=== PATIENT | male | born 1935 | race Caucasian/White ===

== ENCOUNTER 2016-05-22 02:37 | Observation (INO) | payer OTHER ==
[2016-05-22] MEDS ORDERED: MAALOX/LIDO/HYOSC GI COCKTAIL 55 ML BOTTLE PO ONE (03:07)
[2016-05-22] MEDS ORDERED: ALBUTEROL 3 ML DEYVIAL IH ONE (03:09)
--- NOTE | 2016-05-22 03:10 | EDPHY ---
H & P Stated Complaint: pt c/o ongoing cough/nasal congestion Time Seen by Provider: 05/22/16 03:01 HPI/ROS: CHIEF COMPLAINT: Cough HISTORY OF PRESENT ILLNESS: The patient is an 81-year-old man who comes to the emergency department complaining of a cough 5 days. No fever. Sinus congestion for 1 month. He does have a history of coronary artery disease status post CABG 2006. He does not have any history of pulmonary disease. No leg swelling or edema. He states that over the last 3 hours he has developed some mild chest pain that he thinks is indigestion but he does not typically get indigestion. He denies shortness of breath. No nausea, abdominal pain diarrhea. No palpitations or lightheadedness. REVIEW OF SYSTEMS: Constitutional: denies: chills, fever, recent illness, recent injury EENTM: denies: blurred vision, double vision, nose congestion Respiratory: See HPI Cardiac: See HPI Gastrointestinal/Abdominal: denies: abdominal pain, diarrhea, nausea, vomiting, blood streaked stools Genitourinary: denies: dysuria, frequency, hematuria, pain Musculoskeletal: denies: joint pain, muscle pain Skin: denies: lesions, rash, jaundice, bruising Neurological: denies: headache, numbness, paresthesia, tingling, dizziness, weakness Hematologic/Lymphatic: denies: blood clots, easy bleeding, easy bruising Immunologic/allergic: denies: HIV/AIDS, transplant EXAM: GENERAL: Well-appearing, well-nourished and in no acute distress. HEAD: Atraumatic, normocephalic. EYES: Pupils equal round and reactive to light, extraocular movements intact, sclera anicteric, conjunctiva are normal. ENT: TMs normal, nares patent, oropharynx clear without exudates. Moist mucous membranes. NECK: Normal range of motion, supple without lymphadenopathy or JVD. LUNGS: Breath sounds clear to auscultation bilaterally and equal. No wheezes rales or rhonchi. HEART: Regular rate and rhythm without murmurs, rubs or gallops. ABDOMEN: Soft, nontender, normoactive bowel sounds. No guarding, no rebound. No masses appreciated. BACK: No CVA tenderness, no spinal tenderness, step-offs or deformities EXTREMITIES: Normal range of motion, no pitting or edema. No clubbing or cyanosis. NEUROLOGICAL: Cranial nerves II through XII grossly intact. Normal speech, normal gait. 5/5 strength, normal movement in all extremities, normal sensation PSYCH: Normal mood, normal affect. SKIN: Warm, dry, normal turgor, no visible rashes or lesions. Source: Patient Exam Limitations: No limitations - Medical/Surgical History Hx Asthma: No Hx Chronic Respiratory Disease: No Hx Diabetes: No Hx Cardiac Disease: Yes Hx Renal Disease: No Hx Cirrhosis: No Hx Alcoholism: No Hx HIV/AIDS: No Hx Splenectomy or Spleen Trauma: No Other PMH: Cardiac Bypass (2006), hyperlipidemia, Prostate issues, bilat cataract surg - Family History Significant Family History: No pertinent family hx - Social History Smoking Status: Never smoked Alcohol Use: Sober Drug Use: None Constitutional: Initial Vital Signs Temperature (C) 36.8 C 05/22/16 02:43 Heart Rate 88 05/22/16 02:43 Respiratory Rate 18 05/22/16 02:43 Blood Pressure 144/81 H 05/22/16 02:43 O2 Sat (%) 92 05/22/16 02:43 O2 Delivery Mode Room Air Allergies/Adverse Reactions: No Known Allergies Allergy (Verified 05/22/16 02:46) Home Medications: Medication Instructions Recorded ASPIRIN 01/10/16 Finasteride 01/10/16 SIMVASTATIN 01/10/16 Medical Decision Making - Diagnostics EKG Interpretation: An EKG obtained and was read and documented in trace view. Please see trace view for full reading and report. No acute ischemic changes, nonspecific interventricular conduction delay, Imaging: X-ray: [chest x-ray ] was obtained. I viewed the images myself on the PACS system. My interpretation of the images is: Bilateral infiltrates. The radiologist interpretation is pending. ED Course/Re-evaluation: The patient is mildly hypoxic at 89%. He has what appeared to be infiltrates on his chest x-ray and a cough productive of yellow sputum. His cardiac workup is negative thus far. I will admit him for pneumonia and initiate antibiotics and blood cultures. I discussed the case with Dr. Cory Collier who agrees. Differential Diagnosis: Partial list of the Differential diagnosis considered include but were not limited to; pneumonia, bronchitis, CHF, acute coronary disease and although unlikely based on the history and physical exam, I also considered PE, dissection. - Data Points Laboratory Results: Laboratory Results 05/22/16 03:12 05/22/16 03:12 05/22/16 03:12 WBC 6.73 10^3/uL (3.80-9.50) RBC 4.65 10^6/uL (4.40-6.38) Hgb 15.2 g/dL (13.7-17.5) Hct 43.3 % (40.0-51.0) MCV 93.1 fL (81.5-99.8) MCH 32.7 pg (27.9-34.1) MCHC 35.1 g/dL (32.4-36.7) RDW 12.8 % (11.5-15.2) Plt Count 128 L 10^3/uL (150-400) MPV 9.2 fL (8.7-11.7) Neut % (Auto) 60.1 % (39.3-74.2) Lymph % (Auto) 25.4 % (15.0-45.0) [place] % (Auto) 9.1 % (4.5-13.0) Eos % (Auto) 4.6 % (0.6-7.6) Baso % (Auto) 0.4 % (0.3-1.7) Nucleat RBC Rel Count 0.0 % (0.0-0.2) Absolute Neuts (auto) 4.04 10^3/uL (1.70-6.50) Absolute Lymphs (auto) 1.71 10^3/uL (1.00-3.00) Absolute Monos (auto) 0.61 10^3/uL (0.30-0.80) Absolute Eos (auto) 0.31 10^3/uL (0.03-0.40) Absolute Basos (auto) 0.03 10^3/uL (0.02-0.10) Absolute Nucleated RBC 0.00 10^3/uL (0-0.01) Immature Gran % 0.4 % (0.0-1.1) Immature Gran # 0.03 10^3/uL (0.00-0.10) Sodium 139 mEq/L (134-144) Potassium 4.3 mEq/L (3.5-5.2) Chloride 103 mEq/L (97-110) Carbon Dioxide 23 mEq/l (22-31) Anion Gap 13 mEq/L (8-16) BUN 18 mg/dL (7-23) Creatinine 0.8 mg/dL (0.7-1.3) Estimated GFR > 60 Glucose 107 H mg/dL (70-100) Calcium 9.1 mg/dL (8.5-10.4) Troponin I < 0.012 ng/mL (0-0.034) NT-Pro-B Natriuret Pep 298 pg/mL (0-450) Medications Given: Discontinued Medications Albuterol (Proventil Neb) 3 ml IH EDNOW ONE Stop: 05/22/16 03:10 Last Admin: 05/22/16 03:56 Dose: 3 ml Azithromycin 500 mg/ Dextrose 255 mls @ 255 mls/hr IV EDNOW ONE PRN Reason: Protocol Stop: 05/22/16 05:17 Last Admin: 05/22/16 04:55 Dose: 255 mls Ceftriaxone Sodium/Dextrose (Rocephin 1 Gm (Premix)) 50 mls @ 100 mls/hr IV EDNOW ONE PRN Reason: Protocol Stop: 05/22/16 04:48 Last Admin: 05/22/16 04:27 Dose: 50 mls Miscellaneous Medication (Gi Cocktail) 55 ml PO EDNOW ONE Stop: 05/22/16 03:08 Last Admin: 05/22/16 03:55 Dose: 55 ml Departure - Departure Disposition: [facility] Inpatient Acute Clinical Impression: Pneumonia Qualifiers: Pneumonia type: due to unspecified organism Laterality: bilateral Lung location : lower lobe of lung Qualifier Code: (J18.9) Pneumonia, unspecified organism Condition: Fair
--- NOTE | 2016-05-22 03:12 | CPEKG ---
Heart Rate: 84 RR Interval: 714 P-R Interval: 212 QRSD Interval: 114 QT Interval: 396 QTC Interval: 469 P [place]: 49 QRS [place]: -33 T Wave [place]: 80 EKG Severity - ABNORMAL ECG - EKG Impression: SINUS RHYTHM EKG Impression: NONSPECIFIC INTRAVENTRICULAR CONDUCTION DELAY Electronically Signed By: Scot Lewis 22-May-2016 03:18:37
[2016-05-22] MEDS ORDERED: MAALOX/LIDO/HYOSC GI COCKTAIL 55 ML BOTTLE ONE (03:25)
[2016-05-22 03:31] LABS: % IMMATURE GRANULYOCYTES 0.4 % (0.0-1.1); ABSOLUTE IMMATURE GRANULOCYTES 0.03 10^3/uL (0.00-0.10); ADD DIFF? NO; ADD MORPH? NO; ADD SCAN? NO; ANION GAP 13 mEq/L (8-16); ATYPICAL LYMPHOCYTE FLAG 0 (0-99); CALCIUM 9.1 mg/dL (8.5-10.4); CARBON DIOXIDE 23 mEq/l (22-31); CHLORIDE 103 mEq/L (97-110); CREATININE 0.8 mg/dL (0.7-1.3); FRAGMENT RBC FLAG 0 (0-99); GLOMERULAR FILTRATION RATE > 60; GLUCOSE 107 mg/dL (70-100); HEMATOCRIT 43.3 % (40.0-51.0); HEMOGLOBIN 15.2 g/dL (13.7-17.5); LEFT SHIFT FLG 0 (0-99); LIPEMIA HEMOLYSIS FLAG 90 (0-99); MEAN CELL HEMOGLOBIN 32.7 pg (27.9-34.1); MEAN CELL HEMOGLOBIN CONCENTR. 35.1 g/dL (32.4-36.7); MEAN CELL VOLUME 93.1 fL (81.5-99.8); MEAN PLATELET VOLUME 9.2 fL (8.7-11.7); PLATELET CLUMPS FLAG 0 (0-99); PLATELET COUNT 128 10^3/uL (150-400); POTASSIUM 4.3 mEq/L (3.5-5.2); RED BLOOD CELL COUNT 4.65 10^6/uL (4.40-6.38); RED CELL DISTRIBUTION WIDTH 12.8 % (11.5-15.2); SODIUM 139 mEq/L (134-144)
[2016-05-22 03:43] LABS: TROPONIN I < 0.012 ng/mL (0-0.034)
[2016-05-22] MEDS ORDERED: CEFTRIAXONE 1 GM/DEXTROSE/50 ML BAG IV ONE (04:17)
[2016-05-22] MEDS ORDERED: AZITHROMYCIN IV 500 MG in D5W 250 ML IV ONE (04:18)
[2016-05-22 05:30] VITALS: O2SAT 95
[2016-05-22 07:10] VITALS: TEMP 97.8
[2016-05-22] MEDS ORDERED: ONDANSETRON DISINTEGRATING 4 MG TAB PO PRN (07:33)
[2016-05-22] MEDS ORDERED: ACETAMINOPHEN 325 MG TAB PO PRN (07:33)
[2016-05-22] MEDS ORDERED: ONDANSETRON 4 MG/2 ML VIAL IVP PRN (07:33)
--- NOTE | 2016-05-22 08:12 | GHP ---
[f rep st] HISTORY AND PHYSICAL DATE OF ADMISSION: 05/22/2016 DATE OF EVALUATION: 05/22/2016 CHIEF COMPLAINT: Cough. HISTORY OF PRESENT ILLNESS: This is an 81-year-old male with remote history of coronary artery disea se. He states about 6 days ago, he developed a cough. However, his sister's and thus fay jhaveri has been unable to get to the [place] where he usually gets his medical care. This has worsened, prompt ing the patient to come to the emergency department. He does have some sputum. He also had some mil d chest pain, which is now resolved. No shortness of breath. REVIEW OF SYSTEMS: A 10-point review of systems was obtained and other than stated above was negativ e. PAST MEDICAL HISTORY: 1. Coronary artery disease, status post bypass in 2006. 2. BPH. 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 SOCIAL HISTORY: Lives alone. No smoking. No alcohol. FAMILY HISTORY: Both parents are . PHYSICAL EXAM: VITAL SIGNS: Afebrile, blood pressure is 105/64, heart rate 76, oxygen saturation is 90% on room air. GENERAL: The patient is well developed, in no apparent distress. HEENT: Nonicte tricia sclerae. Extraocular movements intact. Moist mucous membranes. NECK: Supple. No thyromegaly. LUNGS: Good effort. Clear to auscultation bilaterally. No rales or rhonchi. ABDOMEN: Positive bowel sounds. Soft, nontender, nondistended. No hepatosplenomegaly. EXTREMITIES: No clubbing, cya nosis. Some chronic venous stasis changes in the lower legs. NEUROLOGIC: Alert and oriented x3. M oving all 4 extremities equally. PSYCH: Normal mood and affect. LABS: CBC is normal. Chemistries normal. Chest x-ray, personally reviewed and interpreted, with in creased interstitial markings in the lower lobes and possibly an early right lower lobe pneumonia. ASSESSMENT: This is an 81-year-old male presenting with: 1. Early pneumonia versus bronchitis. 2. History of coronary artery disease. This is stable. PLAN: Patient has been given Azithromycin and ceftriaxone in the emergency department. He is actual ly feeling a lot better. We will continue this regimen, but I suspect the patient could go home this afternoon. /[id number]/MODL
[2016-05-22] MEDS ORDERED: AZITHROMYCIN IV 500 MG in D5W 250 ML IV SCH (09:00)
[2016-05-22] MEDS ORDERED: AZITHROMYCIN 250 MG TAB PO SCH (09:00)
--- NOTE | 2016-05-22 09:34 | DX ---
PA and Lateral Chest History: Chest pain in an 81-year-old male; comparison PA and lateral chest and noncontrast CT scan o f the chest March 13, 2016. Findings: The heart and mediastinum are normal. Pulmonary vascularity is normal. Postoperative change s of CABG are noted. Sternotomy wires are stable in appearance. No focal pulmonary consolidation is i dentified. Peribronchial thickening is noted and basilar opacities are unchanged. There is no pleural fluid. A pneumothorax is not identified. Healed left rib fractures are seen. There has been no signi ficant change from the prior studies. Impression: Elderly chest negative for acute abnormalities with findings noted as detailed above.
[2016-05-22] MEDS ORDERED: BENZONATATE 100 MG CAP PO PRN (10:51)
[2016-05-22 11:01] VITALS: BP 110/58; PULSE 90; RESP 16
--- NOTE | 2016-05-22 18:49 | GDS ---
[f rep st] DISCHARGE SUMMARY DISCHARGE DIAGNOSIS: Include community-acquired pneumonia. HISTORY OF PRESENT ILLNESS: This is an 81-year-old male who presented to the emergency department wi th complaints of shortness of breath. For details of the patient's initial presentation, please see the history and physical dated 05/22/2016. CONSULTATIVE SERVICES: None. PROCEDURES: None. HOSPITAL COURSE BY ISSUE: Community-acquired pneumonia. Based on the patient's symptomatology and c hest x-ray, he was initiated on empiric antibiotics with ceftriaxone and azithromycin. Blood culture s were drawn in the emergency department, and at the time of disposition are no growth to date. The patient is being transitioned to oral levofloxacin to complete a 7-day course for pneumonia. He is a dditionally being provided with oral Tessalon Perles to control his cough in the outpatient setting. MEDICATIONS AT DISPOSITION: Please reference medication reconciliation printed on 05/22/2016. Of no te, the only medications added to his home list include Tessalon Perles and levofloxacin for 6 days. FOLLOWUP APPOINTMENTS: Primary care provider in the next week at the conclusion of his antibiotic co urse for post disposition followup. PENDING STUDIES: At the time of this dictation, include blood cultures drawn 05/22/2016. I spent greater than 30 minutes in the planning and coordination of this discharge. /[id number]/MODL
== END 2016-05-22 13:23 | disposition home or self-care (01) ==
LOC: F2W 05:08
PROVIDERS: ADMIT Internal Medicine; ATTEND Hospitalist
DX: J18.9 Pneumonia, unspecified organism (principal); I25.10 Atherosclerotic heart disease of native coronary artery without angina pectoris; Z95.1 Presence of aortocoronary bypass graft; E78.5 Hyperlipidemia, unspecified; N40.0 Benign prostatic hyperplasia without lower urinary tract symptoms; H53.001 Unspecified amblyopia, right eye
CPT/HCPCS: 71020; 93005; 96365; 96368; 99285; G0378; J0456; J0696

== ENCOUNTER 2016-10-17 12:44 | Emergency (ER) | payer OTHER ==
[2016-10-17 12:51] VITALS: O2SAT 92
--- NOTE | 2016-10-17 14:56 | EDPHY ---
H & P Stated Complaint: contipation x 2 weeks HPI/ROS: HPI CHIEF COMPLAINT: Constipation HISTORY OF PRESENT ILLNESS: This patient is a 81-year-old male, significant past medical history for coronary artery disease status post CABG, suffers from intermittent constipation. He tells me he has not had a good bowel movement 2 weeks. He tells me he had to be hospitalized remotely for severe constipation and fecal impaction. States he has tried multiple enemas. Continues to have the feeling of constipation. He denies any chest pain, shortness of breath, abdominal pain, fever, vomiting. Denies nausea, does tell me that he has been eating. Past Medical History: Coronary artery disease, CABG, constipation, BPH Past Surgical History: CABG Social History: Denies daily use drugs alcohol tobacco products, lives locally in [place] Family History: Noncontributory ROS REVIEW OF SYSTEMS: A comprehensive 10 point review of systems is otherwise negative aside from elements mentioned in the history of present illness. Exam Constitutional appears well nontoxic triage nursing summary reviewed, vital signs reviewed, awake/alert. Eyes normal conjunctivae and sclera, EOMI, PERRLA. HENT normal inspection, atraumatic, moist mucus membranes, no epistaxis, neck supple/ no meningismus, no raccoon eyes. Respiratory clear to auscultation bilaterally, normal breath sounds, no respiratory distress, no wheezing. Cardiovascular rate normal, regular rhythm, no murmur, no edema, distal pulses normal. Gastrointestinal hypoactive bowel sounds soft, non-tender, no rebound, no guardin, no distension, no pulsatile mass. Genitourinary no CVA tenderness. Musculoskeletal no midline vertebral tenderness, full range of motion, no calf swelling, no tenderness of extremities, no meningismus, good pulses, neurovascularly intact. Skin pink, warm, & dry, no rash, skin atraumatic. Neurologic awake, alert and oriented x 3, AAOx3, moves all 4 extremities equally, motor intact, sensory intact, CN II-XII intact, normal cerebellar, normal vision, normal speech. Psychiatric normal mood/affect. Heme/Lymph/Immune no lymphadenopathy. Differential Diagnosis: Includes but is not limited to in a particular order, constipation, fecal impaction, ileus, bowel obstruction Medical Decision Making: Plan for this patient IV establishment, check blood work, IV fluid bolus, soapsuds enema, KUB. Re-evaluation: 1700: This patient was given a soapsuds enema. With great success. Large bowel movement in the emergency room. Patient feels better. I did review his blood work in KUB. KUB did show mild constipation. No free air. No abnormal bowel gas pattern. Patient feels comfortable going home. I do recommend he takes MiraLax 2 packets twice a day for the next 2 days. Return to the emergency room if he has worsening symptoms includes abdominal pain, fever, vomiting. Source: Patient - Personal History Current Tetanus/Diphtheria Vaccine: Yes - Medical/Surgical History Hx Asthma: No Hx Chronic Respiratory Disease: No Hx Diabetes: No Hx Cardiac Disease: Yes Hx Renal Disease: No Hx Cirrhosis: No Hx Alcoholism: No Hx HIV/AIDS: No Hx Splenectomy or Spleen Trauma: No Other PMH: Cardiac Bypass (2006), hyperlipidemia, Prostate issues, bilat cataract surg - Social History Smoking Status: Never smoked Constitutional: Initial Vital Signs Temperature (C) 36.6 C 10/17/16 12:48 Heart Rate 83 10/17/16 12:48 Respiratory Rate 20 10/17/16 12:48 Blood Pressure 123/65 H 10/17/16 12:48 O2 Sat (%) 92 10/17/16 12:48 O2 Delivery Mode Room Air Allergies/Adverse Reactions: No Known Allergies Allergy (Verified 10/17/16 12:47) Home Medications: Medication Instructions Recorded Aspirin [Aspirin 81mg (*)] 81 mg PO DAILY 01/10/16 Finasteride 01/10/16 SIMVASTATIN 01/10/16 C/E/Zn/Cu/OM3/DHA/EPA/LUT/ZEAX 1 each PO DAILY 05/22/16 [Preservision Areds 2 Softgel] Multivitamins [Multivitamin (*)] 1 each PO DAILY 05/22/16 [place]-3 Fatty Acids [Fish Oil 1000 1,000 mg PO DAILY 05/22/16 mg (*)] Polyethylene Glycol 3350 [Miralax 17 gm PO DAILY #4 pkt 10/17/16 17 gm (*)] Medical Decision Making - Diagnostics Imaging Results: Imaging Impressions Abdomen X-Ray 10/17/16 15:02 Impression: Query constipation. - Data Points Laboratory Results: Laboratory Results 10/17/16 15:18 10/17/16 15:18 10/17/16 10/17/16 15:18 15:18 WBC 7.10 10^3/uL 10^3/uL (3.80-9.50) RBC 4.86 10^6/uL 10^6/uL (4.40-6.38) Hgb 15.7 g/dL g/dL (13.7-17.5) Hct 45.3 % % (40.0-51.0) MCV 93.2 fL fL (81.5-99.8) MCH 32.3 pg pg (27.9-34.1) MCHC 34.7 g/dL g/dL (32.4-36.7) RDW 12.8 % % (11.5-15.2) Plt Count 137 10^3/uL L 10^3/uL (150-400) MPV 8.9 fL fL (8.7-11.7) Neut % (Auto) 57.9 % % (39.3-74.2) Lymph % (Auto) 31.0 % % (15.0-45.0) [place] % (Auto) 6.9 % % (4.5-13.0) Eos % (Auto) 3.5 % % (0.6-7.6) Baso % (Auto) 0.4 % % (0.3-1.7) Nucleat RBC Rel Count 0.0 % % (0.0-0.2) Absolute Neuts (auto) 4.11 10^3/uL 10^3/uL (1.70-6.50) Absolute Lymphs (auto) 2.20 10^3/uL 10^3/uL (1.00-3.00) Absolute Monos (auto) 0.49 10^3/uL 10^3/uL (0.30-0.80) Absolute Eos (auto) 0.25 10^3/uL 10^3/uL (0.03-0.40) Absolute Basos (auto) 0.03 10^3/uL 10^3/uL (0.02-0.10) Absolute Nucleated RBC 0.00 10^3/uL 10^3/uL (0-0.01) Immature Gran % 0.3 % % (0.0-1.1) Immature Gran # 0.02 10^3/uL 10^3/uL (0.00-0.10) Sodium 136 mEq/L mEq/L (134-144) Potassium 4.9 mEq/L mEq/L (3.5-5.2) Chloride 102 mEq/L mEq/L (97-110) Carbon Dioxide 20 mEq/l L mEq/l (22-31) Anion Gap 14 mEq/L mEq/L (8-16) BUN 17 mg/dL mg/dL (7-23) Creatinine 0.9 mg/dL mg/dL (0.7-1.3) Estimated GFR > 60 Glucose 97 mg/dL mg/dL (70-100) Calcium 9.8 mg/dL mg/dL (8.5-10.4) Total Bilirubin 2.6 mg/dL H mg/dL (0.1-1.4) Conjugated Bilirubin 0.4 mg/dL mg/dL (0.0-0.5) Unconjugated Bilirubin 2.2 mg/dL H mg/dL (0.0-1.1) AST 32 IU/L IU/L (17-59) ALT 33 IU/L IU/L (21-72) Alkaline Phosphatase 62 IU/L IU/L (38-126) Total Protein 8.1 g/dL g/dL (6.3-8.2) Albumin 4.9 g/dL g/dL (3.5-5.0) Lipase 74.0 IU/L IU/L (23-300) Medications Given: Discontinued Medications Sodium Chloride (Ns) 1,000 mls @ 0 mls/hr IV ONCE ONE; Wide Open PRN Reason: Protocol Stop: 10/17/16 15:02 Last Admin: 10/17/16 15:28 Dose: 1,000 mls Departure - Departure Disposition: Home, Routine, Self-Care Clinical Impression: Constipation Qualifiers: Constipation type: unspecified constipation type Qualified Code(s): K59.00 - Constipation, unspecified Condition: Good Instructions: Constipation (ED) Additional Instructions: 1. Return emergency room if he develops any worsening abdominal pain fever vomiting. 2. Drink lots of water. Increase your fiber. Referrals: NONE *PRIMARY CARE P,. [Primary Care Provider] - As per Instructions Prescriptions: Polyethylene Glycol 3350 [Miralax 17 gm (*)] 17 gm PO DAILY #4 pkt
[2016-10-17] MEDS ORDERED: NS 1,000 ML IV ONE (15:01)
[2016-10-17 15:18] VITALS: PULSE 82; RESP 18
[2016-10-17 15:30] LABS: % IMMATURE GRANULYOCYTES 0.3 % (0.0-1.1); ABSOLUTE IMMATURE GRANULOCYTES 0.02 10^3/uL (0.00-0.10); ADD DIFF? NO; ADD MORPH? NO; ADD SCAN? NO; ATYPICAL LYMPHOCYTE FLAG 0 (0-99); FRAGMENT RBC FLAG 0 (0-99); HEMATOCRIT 45.3 % (40.0-51.0); HEMOGLOBIN 15.7 g/dL (13.7-17.5); LEFT SHIFT FLG 0 (0-99); LIPEMIA HEMOLYSIS FLAG 90 (0-99); MEAN CELL HEMOGLOBIN 32.3 pg (27.9-34.1); MEAN CELL HEMOGLOBIN CONCENTR. 34.7 g/dL (32.4-36.7); MEAN CELL VOLUME 93.2 fL (81.5-99.8); MEAN PLATELET VOLUME 8.9 fL (8.7-11.7); PLATELET CLUMPS FLAG 10 (0-99); PLATELET COUNT 137 10^3/uL (150-400); RED BLOOD CELL COUNT 4.86 10^6/uL (4.40-6.38); RED CELL DISTRIBUTION WIDTH 12.8 % (11.5-15.2)
[2016-10-17 15:41] LABS: ALANINE AMINOTRANSFERASE 33 IU/L (21-72); ALBUMIN 4.9 g/dL (3.5-5.0); ALKALINE PHOSPHATASE 62 IU/L (38-126); ANION GAP 14 mEq/L (8-16); ASPARTATE AMINOTRANSFERASE 32 IU/L (17-59); BILIRUBIN,TOTAL 2.6 mg/dL (0.1-1.4); BILIRUBIN-CONJUGATED 0.4 mg/dL (0.0-0.5); BILIRUBIN-UNCONJUGATED 2.2 mg/dL (0.0-1.1); CALCIUM 9.8 mg/dL (8.5-10.4); CARBON DIOXIDE 20 mEq/l (22-31); CHLORIDE 102 mEq/L (97-110); CREATININE 0.9 mg/dL (0.7-1.3); GLOMERULAR FILTRATION RATE > 60; GLUCOSE 97 mg/dL (70-100); POTASSIUM 4.9 mEq/L (3.5-5.2); SODIUM 136 mEq/L (134-144); TOTAL PROTEIN 8.1 g/dL (6.3-8.2)
[2016-10-17 17:03] VITALS: BP 131/67; TEMP 97.7
== END 2016-10-17 17:11 | disposition home or self-care (01) ==
DX: K59.00 Constipation, unspecified (principal); I25.810 Atherosclerosis of coronary artery bypass graft(s) without angina pectoris; Z79.82 Long term (current) use of aspirin

== ENCOUNTER 2017-02-06 20:24 | Emergency (ER) | payer OTHER ==
[2017-02-06 20:38] VITALS: RESP 18; TEMP 98.4
--- NOTE | 2017-02-06 20:40 | CPEKG ---
Heart Rate: 71 RR Interval: 845 P-R Interval: 204 QRSD Interval: 112 QT Interval: 412 QTC Interval: 448 P [place]: 33 QRS [place]: -38 T Wave [place]: 62 EKG Severity - ABNORMAL ECG - EKG Impression: SINUS RHYTHM EKG Impression: NONSPECIFIC IVCD WITH LAD Electronically Signed By: Scot Lewis 06-Feb-2017 20:54:50
[2017-02-06] MEDS ORDERED: ASPIRIN 81 MG CHEWABLE TAB PO ONE (20:47)
--- NOTE | 2017-02-06 20:51 | EDPHY ---
H & P Stated Complaint: left arm pAin. hx oF LA AND CHF Time Seen by Provider: 02/06/17 20:41 HPI/ROS: CHIEF COMPLAINT: Axillary pain HISTORY OF PRESENT ILLNESS: Patient is an 81-year-old man who comes to the emergency department complaining of axillary pain. He states that he has trouble with constipation and that he was straining vigorously on the toilet about 2 hours ago and developed left axillary pain and slight dizziness. He states that he has strained muscles in his neck in the past because he has to strain so hard on the toilet. He thinks that this is maybe what happened but he also is concerned about his heart. He has a history of coronary artery disease with a 4 vessel CABG in 2008 as well as congestive heart failure. No nausea vomiting. No diaphoresis. No back pain. No lightheadedness. He does have some reproduction of his pain with arm movement. No recent travel. No leg pain or swelling. REVIEW OF SYSTEMS: Constitutional: denies: chills, fever, recent illness, recent injury EENTM: denies: blurred vision, double vision, nose congestion Respiratory: denies: cough, shortness of breath Cardiac: See HPI Gastrointestinal/Abdominal: denies: abdominal pain, diarrhea, nausea, vomiting, blood streaked stools Genitourinary: denies: dysuria, frequency, hematuria, pain Musculoskeletal: denies: joint pain, muscle pain Skin: denies: lesions, rash, jaundice, bruising Neurological: denies: headache, numbness, paresthesia, tingling, dizziness, weakness Hematologic/Lymphatic: denies: blood clots, easy bleeding, easy bruising Immunologic/allergic: denies: HIV/AIDS, transplant EXAM: GENERAL: Well-appearing, well-nourished and in no acute distress. HEAD: Atraumatic, normocephalic. EYES: Pupils equal round and reactive to light, extraocular movements intact, sclera anicteric, conjunctiva are normal. ENT: TMs normal, nares patent, oropharynx clear without exudates. Moist mucous membranes. NECK: Normal range of motion, supple without lymphadenopathy or JVD. LUNGS: Breath sounds clear to auscultation bilaterally and equal. No wheezes rales or rhonchi. HEART: Regular rate and rhythm without murmurs, rubs or gallops. ABDOMEN: Soft, nontender, normoactive bowel sounds. No guarding, no rebound. No masses appreciated. BACK: No CVA tenderness, no spinal tenderness, step-offs or deformities EXTREMITIES: Mildly edematous lower extremities, baseline, equal, Normal range of motion, no pitting or edema. No clubbing or cyanosis. NEUROLOGICAL: Cranial nerves II through XII grossly intact. Normal speech, normal gait. 5/5 strength, normal movement in all extremities, normal sensation PSYCH: Normal mood, normal affect. SKIN: Warm, dry, normal turgor, no visible rashes or lesions. Source: Patient Exam Limitations: No limitations - Personal History Current Tetanus/Diphtheria Vaccine: Unsure - Medical/Surgical History Hx Asthma: No Hx Chronic Respiratory Disease: No Hx Diabetes: No Hx Cardiac Disease: Yes Hx Renal Disease: No Hx Cirrhosis: No Hx Alcoholism: No Hx HIV/AIDS: No Hx Splenectomy or Spleen Trauma: No Other PMH: Cardiac Bypass (2006), hyperlipidemia, Prostate issues, bilat cataract surg. CHF - Family History Significant Family History: No pertinent family hx - Social History Smoking Status: Never smoked Alcohol Use: Sober Drug Use: None Constitutional: Initial Vital Signs Temperature (C) 36.9 C 02/06/17 20:34 Heart Rate 84 02/06/17 20:34 Respiratory Rate 18 02/06/17 20:34 Blood Pressure 128/76 H 02/06/17 20:34 O2 Sat (%) 96 02/06/17 20:34 O2 Delivery Mode Room Air O2 (L/minute) 2 Allergies/Adverse Reactions: No Known Allergies Allergy (Verified 02/06/17 20:38) Home Medications: Medication Instructions Recorded Aspirin [Aspirin 81mg (*)] 81 mg PO DAILY 01/10/16 Finasteride 01/10/16 SIMVASTATIN 01/10/16 C/E/Zn/Cu/OM3/DHA/EPA/LUT/ZEAX 1 each PO DAILY 05/22/16 [Preservision Areds 2 Softgel] Multivitamins [Multivitamin (*)] 1 each PO DAILY 05/22/16 [place]-3 Fatty Acids [Fish Oil 1000 1,000 mg PO DAILY 05/22/16 mg (*)] Polyethylene Glycol 3350 [Miralax 17 gm PO DAILY #4 pkt 10/17/16 17 gm (*)] Medical Decision Making - Diagnostics EKG Interpretation: An EKG obtained and was read and documented in trace view. Please see trace view for full reading and report. Sinus rhythm, no acute ischemic changes, mild QRS notching consistent with previous EKGs Imaging: Discussed imaging studies w/ weight caller Radiologist ED Course/Re-evaluation: Or 10:30 p.m. we discussed the x-ray and lab results which are reassuring. I offered admission for continued cardiac rule out. The patient declines. He would like to go home. He thinks that he simply strained a muscle while he was on the bathroom with constipation. I gave him strict return precautions. He has a poor cardiac history. His pain is reproducible with movement of his arm. Differential Diagnosis: Partial list of the Differential diagnosis considered include but were not limited to; acute coronary disease, muscle strain and although unlikely based on the history and physical exam, I also considered pneumothorax, fracture, PE. I discussed these differential diagnoses and the plan with the patient as well as the usual and expected course. The patient understands that the diagnosis is provisional and that in medicine we are not always correct and that further workup is often warranted. Usual and customary warnings were given. All of the patient's questions were answered. The patient was instructed to return to the emergency department should the symptoms at all worsen or return, otherwise to followup with the physician as we discussed. - Data Points Laboratory Results: Laboratory Results 02/06/17 20:45 02/06/17 20:45 Medications Given: Discontinued Medications Aspirin (Aspirin) 324 mg PO EDNOW ONE Stop: 02/06/17 20:48 Last Admin: 02/06/17 20:52 Dose: 324 mg Departure - Departure Disposition: Home, Routine, Self-Care Clinical Impression: Chest pain Qualifiers: Chest pain type: unspecified Qualified Code(s): R07.9 - Chest pain, unspecified Condition: Fair Instructions: Chest Pain (ED) Referrals: [facility] [Other] - As per Instructions
[2017-02-06 20:54] LABS: % IMMATURE GRANULYOCYTES 0.4 % (0.0-1.1); ABSOLUTE IMMATURE GRANULOCYTES 0.02 10^3/uL (0.00-0.10); ADD DIFF? NO; ADD MORPH? NO; ADD SCAN? NO; ATYPICAL LYMPHOCYTE FLAG 0 (0-99); FRAGMENT RBC FLAG 0 (0-99); HEMATOCRIT 42.1 % (40.0-51.0); HEMOGLOBIN 15.2 g/dL (13.7-17.5); LEFT SHIFT FLG 0 (0-99); LIPEMIA HEMOLYSIS FLAG 90 (0-99); MEAN CELL HEMOGLOBIN 33.7 pg (27.9-34.1); MEAN CELL HEMOGLOBIN CONCENTR. 36.1 g/dL (32.4-36.7); MEAN CELL VOLUME 93.3 fL (81.5-99.8); MEAN PLATELET VOLUME 8.5 fL (8.7-11.7); PLATELET CLUMPS FLAG 10 (0-99); PLATELET COUNT 150 10^3/uL (150-400); RED BLOOD CELL COUNT 4.51 10^6/uL (4.40-6.38); RED CELL DISTRIBUTION WIDTH 12.3 % (11.5-15.2)
[2017-02-06 21:01] LABS: INR 1.15 (0.83-1.16); PROTIME(PATIENT) 14.7 SEC (12.0-15.0)
[2017-02-06 21:02] LABS: APTT 34.7 SEC (23.0-38.0)
[2017-02-06 21:07] LABS: ALANINE AMINOTRANSFERASE 33 IU/L (21-72); ALBUMIN 4.2 g/dL (3.5-5.0); ALKALINE PHOSPHATASE 60 IU/L (38-126); ANION GAP 11 mEq/L (8-16); ASPARTATE AMINOTRANSFERASE 25 IU/L (17-59); BILIRUBIN,TOTAL 1.5 mg/dL (0.1-1.4); BILIRUBIN-CONJUGATED 0.3 mg/dL (0.0-0.5); BILIRUBIN-UNCONJUGATED 1.2 mg/dL (0.0-1.1); CALCIUM 9.4 mg/dL (8.5-10.4); CARBON DIOXIDE 23 mEq/l (22-31); CHLORIDE 100 mEq/L (97-110); GLOMERULAR FILTRATION RATE > 60; GLUCOSE 97 mg/dL (70-100); POTASSIUM 4.5 mEq/L (3.5-5.2); SODIUM 134 mEq/L (134-144); TOTAL PROTEIN 7.3 g/dL (6.3-8.2)
[2017-02-06 21:17] LABS: TROPONIN I < 0.012 ng/mL (0.000-0.034)
[2017-02-06 22:49] VITALS: BP 138/76; PULSE 68; O2SAT 93
== END 2017-02-06 22:47 | disposition home or self-care (01) ==
DX: R07.9 Chest pain, unspecified (principal); I50.9 Heart failure, unspecified; Z79.82 Long term (current) use of aspirin

== ENCOUNTER 2017-06-18 21:14 | Observation (INO) | payer OTHER ==
--- NOTE | 2017-06-18 21:36 | EDPHY ---
HPI/HX/ROS/PE/MDM Narrative: CHIEF COMPLAINT: Shortness of breath, fatigue HISTORY OF PRESENT ILLNESS: The patient is an 82 y/o male with a history of a CABG (2006) and NM complaining of shortness of breath and feeling fatigued. These symptoms began several months ago, but have worsened over the last several weeks. For the past week he feels as if he is breathing harder than normal. Tonight he is feeling more tired than in the past several weeks, and feels like he needs to go to bed after being awake for only a couple of hours. He also noticed that his shortness of breath became exacerbated while lying flat. He was advised to present to the ED by his physician. Only sees a counter person once a year at the [facility] and is unsure when his last stress test was. No pain or shortness of breath currently. No fever, chills, chest pain, palpitations, vomiting, diarrhea, urinary complaints, headache, lightheadedness. REVIEW OF SYSTEMS: Aside from elements discussed in the HPI, a comprehensive 10-point review of systems was reviewed and is negative. PAST MEDICAL HISTORY: NM, CABG (2006), hyperlipidemia, CHF SOCIAL HISTORY: Lives in [place], retired, nonsmoker VITAL SIGNS: Reviewed by me GENERAL: Pleasant, elderly gentleman. No obvious distress. HEENT: Atraumatic. Eyes: No icterus, no injection. Mouth: Poor dentition, moist mucous membranes. No erythema or lesions. Neck: supple with no adenopathy. LUNGS: Diminished breath sounds bilaterally but clear, no wheezes, rhonchi or rales. CARDIAC: Regular rate and rhythm, no rubs, murmurs or gallops. ABDOMEN: Soft, obese, nontender, nondistended, bowel sounds normal. BACK: No CVA tenderness. EXTREMITIES: No trauma. No edema. Range of motion is normal throughout. NEURO: Alert and oriented, grossly nonfocal. SKIN: Warm and dry, no rash. PSYCHIATRIC: Normal mentation, no agitation. Portions of this note were transcribed by a medical information specialist. I personally performed a history, physical exam, medical decision making, and confirmed accuracy of information the transcribed note. ED Course: The patient is an 82 y/o male with a history of a CABG (2006) and NM presenting with worsening fatigue, onset several months ago. He also reports significant dyspnea especially with lying flat over the last several days. His physical exam is normal. Labs, chest x-ray, and EKG ordered. 2202: 12-LEAD EKG: Please see the full report in Trace Master. My interpretation: Normal sinus rhythm with a rate of 66 and first degree AV block. This is similar to EKG in January 2017. 2245: I reviewed patient's chest x-ray; it reveals cardiomegaly. Patient will need to be admitted to rule out cardiac etiology of his symptoms. 2314: Consulted with hospitalist service, Dr. See accepts admission of this patient. Reassessed patient and discussed plan for admission; patient is comfortable with this plan. MDM: Differential diagnosis for the patient's shortness of breath and fatigue was considered including but not limited to pulmonary infectious processes, pulmonary edema, congestive heart failure, cardiac causes, electrolyte abnormalities, anemia. - Data Points Imaging Results: Imaging Impressions Chest X-Ray 06/18/17 22:30 Impression: No definite pneumonia or pulmonary edema. Imaging: I viewed and interpreted images myself Laboratory Results: Laboratory Results 06/18/17 21:45 06/18/17 21:45 06/18/17 06/18/17 06/18/17 21:45 21:45 21:45 WBC 6.09 10^3/uL 10^3/uL (3.80-9.50) RBC 5.04 10^6/uL 10^6/uL (4.40-6.38) Hgb 16.3 g/dL g/dL (13.7-17.5) Hct 47.4 % % (40.0-51.0) MCV 94.0 fL fL (81.5-99.8) MCH 32.3 pg pg (27.9-34.1) MCHC 34.4 g/dL g/dL (32.4-36.7) RDW 12.8 % % (11.5-15.2) Plt Count 164 10^3/uL 10^3/uL (150-400) MPV 9.6 fL fL (8.7-11.7) Neut % (Auto) 51.6 % % (39.3-74.2) Lymph % (Auto) 34.8 % % (15.0-45.0) [place] % (Auto) 8.0 % % (4.5-13.0) Eos % (Auto) 4.4 % % (0.6-7.6) Baso % (Auto) 0.7 % % (0.3-1.7) Nucleat RBC Rel Count 0.0 % % (0.0-0.2) Absolute Neuts (auto) 3.14 10^3/uL 10^3/uL (1.70-6.50) Absolute Lymphs (auto) 2.12 10^3/uL 10^3/uL (1.00-3.00) Absolute Monos (auto) 0.49 10^3/uL 10^3/uL (0.30-0.80) Absolute Eos (auto) 0.27 10^3/uL 10^3/uL (0.03-0.40) Absolute Basos (auto) 0.04 10^3/uL 10^3/uL (0.02-0.10) Absolute Nucleated RBC 0.00 10^3/uL 10^3/uL (0-0.01) Immature Gran % 0.5 % % (0.0-1.1) Immature Gran # 0.03 10^3/uL 10^3/uL (0.00-0.10) Sodium 138 mEq/L mEq/L (135-145) Potassium 4.8 mEq/L mEq/L (3.5-5.2) Chloride 101 mEq/L mEq/L (97-110) Carbon Dioxide 21 mEq/l L mEq/l (22-31) Anion Gap 16 mEq/L mEq/L (8-16) BUN 22 mg/dL mg/dL (7-23) Creatinine 0.9 mg/dL mg/dL (0.7-1.3) Estimated GFR > 60 Glucose 104 mg/dL H mg/dL (70-100) Calcium 9.8 mg/dL mg/dL (8.5-10.4) Total Bilirubin 2.0 mg/dL H mg/dL (0.1-1.4) Conjugated Bilirubin 0.5 mg/dL mg/dL (0.0-0.5) Unconjugated Bilirubin 1.5 mg/dL H mg/dL (0.0-1.1) AST 39 IU/L IU/L (17-59) ALT 41 IU/L IU/L (21-72) Alkaline Phosphatase 76 IU/L IU/L (38-126) Troponin I 0.012 ng/mL ng/mL (0.000-0.034) Total Protein 7.8 g/dL g/dL (6.3-8.2) Albumin 4.6 g/dL g/dL (3.5-5.0) Lipase 98 IU/L IU/L (23-300) Urine Color YELLOW Urine Appearance CLEAR Urine pH 6.0 (5.0-7.5) Ur Specific [place] 1.016 (1.002-1.030) Urine Protein NEGATIVE (NEGATIVE) Urine Ketones NEGATIVE (NEGATIVE) Urine Blood NEGATIVE (NEGATIVE) Urine Nitrate NEGATIVE (NEGATIVE) Urine Bilirubin NEGATIVE (NEGATIVE) Urine Urobilinogen NEGATIVE EU EU (0.2-1.0) Ur Leukocyte Esterase NEGATIVE (NEGATIVE) Urine RBC 1-3 /hpf /hpf (0-3) Urine WBC NONE SEEN /hpf /hpf (0-3) Ur Epithelial Cells NONE SEEN /lpf /lpf (NONE-1+) Urine Glucose NEGATIVE (NEGATIVE) General Time Seen by Provider: 06/18/17 21:35 Initial Vital Signs: Initial Vital Signs Temperature (C) 36.5 C 06/18/17 21:19 Heart Rate 75 06/18/17 21:19 Respiratory Rate 18 06/18/17 21:19 Blood Pressure 138/70 H 06/18/17 21:19 O2 Sat (%) 94 06/18/17 21:19 O2 Delivery Mode Room Air Allergies/Adverse Reactions: No Known Allergies Allergy (Verified 06/18/17 21:17) Home Medications: Medication Instructions Recorded Aspirin [Aspirin 81mg (*)] 81 mg PO DAILY 01/10/16 Finasteride 01/10/16 SIMVASTATIN 01/10/16 C/E/Zn/Cu/OM3/DHA/EPA/LUT/ZEAX 1 each PO DAILY 05/22/16 [Preservision Areds 2 Softgel] Multivitamins [Multivitamin (*)] 1 each PO DAILY 05/22/16 [place]-3 Fatty Acids [Fish Oil 1000 1,000 mg PO DAILY 05/22/16 mg (*)] Polyethylene Glycol 3350 [Miralax 17 gm PO DAILY #4 pkt 10/17/16 17 gm (*)] Departure - Departure Disposition: [facility] Clinical Impression: Shortness of breath, Chest pain, rule out acute myocardial infarction Fatigue Qualifiers: Fatigue type: unspecified Qualified Code(s): R53.83 - Other fatigue Condition: Fair Report Scribed for: Yaritza Simms Report Scribed by: Radha Mack Date of Report: 06/18/17 Time of Report: 21:36
--- NOTE | 2017-06-18 22:03 | CPEKG ---
Heart Rate: 64 RR Interval: 938 P-R Interval: 220 QRSD Interval: 114 QT Interval: 432 QTC Interval: 446 P [place]: 54 QRS [place]: -38 T Wave [place]: -27 EKG Severity - ABNORMAL ECG - EKG Impression: SINUS RHYTHM EKG Impression: FIRST DEGREE AV BLOCK EKG Impression: PROBABLE LEFT ATRIAL ABNORMALITY EKG Impression: NONSPECIFIC IVCD WITH LAD EKG Impression: CONSIDER ANTERIOR INFARCT Electronically Signed By: Yaritza Simms 19-Jun-2017 10:15:39
[2017-06-18 22:30] LABS: PLATELET COUNT 164 10^3/uL (150-400)
[2017-06-18] MEDS ORDERED: ONDANSETRON 4 MG/2 ML VIAL IVP PRN (23:19)
[2017-06-18] MEDS ORDERED: ACETAMINOPHEN 325 MG TAB PO PRN (23:19)
[2017-06-18] MEDS ORDERED: ONDANSETRON DISINTEGRATING 4 MG TAB PO PRN (23:19)
--- NOTE | 2017-06-19 00:42 | PDGENHP ---
History and Physical - Chief Complaint Fatigue - History of Present Illness Mr. Aiken is a delightful 82 yo M w/ hx of CAD s/p CABG who presents with fatigue. He explains that he has felt fatigue over the last 1-2 months. Then, last night, he stayed up most of the night working on a book. Today he felt severely fatigue, much more than usual, so he came to the ED. He also feels like he had some difficulty breathing but has a hard time describing this. He is asymptomatic at the time of my evaluation. He denies chest pain, fever, or any other symptoms of infection. In the ED his evaluation was relatively unremarkable with normal laboratory work-up and CXR. History Information - Allergies/Home Medication List Allergies/Adverse Reactions: No Known Allergies Allergy (Verified 06/18/17 21:17) Home Medications: Aspirin [Aspirin 81mg (*)] 81 mg PO DAILY 01/10/16 [Last Taken 05/20/16] Finasteride 01/10/16 [Last Taken Unknown] SIMVASTATIN 01/10/16 [Last Taken Unknown] C/E/Zn/Cu/OM3/DHA/EPA/LUT/ZEAX [Preservision Areds 2 Softgel] 1 each PO DAILY [Last Taken 05/20/16] Multivitamins [Multivitamin (*)] 1 each PO DAILY 05/22/16 [Last Taken 05/20/16] [place]-3 Fatty Acids [Fish Oil 1000 mg (*)] 1,000 mg PO DAILY 05/22/16 [Last Taken 05/20/16] I have personally reviewed and updated: family history, medical history - Past Medical History coronary artery disease - Surgical History Reports: coronary bypass surgery - Family History Positive for: cancer - Social History Smoking Status: Never smoked Review of Systems Review of Systems: ROS: 10pt was reviewed & negative except for what was stated in HPI & below Physical Exam Physical Exam: Temp Pulse Resp BP Pulse Ox 36.6 C 64 18 121/70 H 97 06/18/17 23:55 06/18/17 23:55 06/18/17 23:55 06/18/17 23:55 06/18/17 23:55 Constitutional: no apparent distress, not in pain Eyes: PERRL, anicteric sclera Ears, Nose, Mouth, Throat: moist mucous membranes, no oral mucosal ulcers Cardiovascular: regular rate and rhythym, systolic murmur (3/6 systolic murmur @ RUSB), No edema Respiratory: no respiratory distress, clear to auscultation Gastrointestinal: normoactive bowel sounds, soft, non-tender abdomen Skin: warm, normal color Musculoskeletal: full muscle strength, no muscle tenderness Neurologic: AAOx3, sensation intact bilaterally, other (R ptosis) Psychiatric: interacting appropriately, not anxious Lab Data & Imaging Review 06/18/17 21:45 06/18/17 21:45 WBC 6.09 10^3/uL (3.80-9.50) 06/18/17 21:45 RBC 5.04 10^6/uL (4.40-6.38) 06/18/17 21:45 Hgb 16.3 g/dL (13.7-17.5) 06/18/17 21:45 Hct 47.4 % (40.0-51.0) 06/18/17 21:45 MCV 94.0 fL (81.5-99.8) 06/18/17 21:45 MCH 32.3 pg (27.9-34.1) 06/18/17 21:45 MCHC 34.4 g/dL (32.4-36.7) 06/18/17 21:45 RDW 12.8 % (11.5-15.2) 06/18/17 21:45 Plt Count 164 10^3/uL (150-400) 06/18/17 21:45 MPV 9.6 fL (8.7-11.7) 06/18/17 21:45 Neut % (Auto) 51.6 % (39.3-74.2) 06/18/17 21:45 Lymph % (Auto) 34.8 % (15.0-45.0) 06/18/17 21:45 [place] % (Auto) 8.0 % (4.5-13.0) 06/18/17 21:45 Eos % (Auto) 4.4 % (0.6-7.6) 06/18/17 21:45 Baso % (Auto) 0.7 % (0.3-1.7) 06/18/17 21:45 Nucleat RBC Rel Count 0.0 % (0.0-0.2) 06/18/17 21:45 Absolute Neuts (auto) 3.14 10^3/uL (1.70-6.50) 06/18/17 21:45 Absolute Lymphs (auto) 2.12 10^3/uL (1.00-3.00) 06/18/17 21:45 Absolute Monos (auto) 0.49 10^3/uL (0.30-0.80) 06/18/17 21:45 Absolute Eos (auto) 0.27 10^3/uL (0.03-0.40) 06/18/17 21:45 Absolute Basos (auto) 0.04 10^3/uL (0.02-0.10) 06/18/17 21:45 Absolute Nucleated RBC 0.00 10^3/uL (0-0.01) 06/18/17 21:45 Immature Gran % 0.5 % (0.0-1.1) 06/18/17 21:45 Immature Gran # 0.03 10^3/uL (0.00-0.10) 06/18/17 21:45 Sodium 138 mEq/L (135-145) 06/18/17 21:45 Potassium 4.8 mEq/L (3.5-5.2) 06/18/17 21:45 Chloride 101 mEq/L (97-110) 06/18/17 21:45 Carbon Dioxide 21 mEq/l (22-31) L 06/18/17 21:45 Anion Gap 16 mEq/L (8-16) 06/18/17 21:45 BUN 22 mg/dL (7-23) 06/18/17 21:45 Creatinine 0.9 mg/dL (0.7-1.3) 06/18/17 21:45 Estimated GFR > 60 06/18/17 21:45 Glucose 104 mg/dL (70-100) H 06/18/17 21:45 Calcium 9.8 mg/dL (8.5-10.4) 06/18/17 21:45 Total Bilirubin 2.0 mg/dL (0.1-1.4) H 06/18/17 21:45 Conjugated Bilirubin 0.5 mg/dL (0.0-0.5) 06/18/17 21:45 Unconjugated Bilirubin 1.5 mg/dL (0.0-1.1) H 06/18/17 21:45 AST 39 IU/L (17-59) 06/18/17 21:45 ALT 41 IU/L (21-72) 06/18/17 21:45 Alkaline Phosphatase 76 IU/L (38-126) 06/18/17 21:45 Troponin I 0.012 ng/mL (0.000-0.034) 06/18/17 21:45 Total Protein 7.8 g/dL (6.3-8.2) 06/18/17 21:45 Albumin 4.6 g/dL (3.5-5.0) 06/18/17 21:45 Lipase 98 IU/L (23-300) 06/18/17 21:45 Urine Color YELLOW 06/18/17 21:45 Urine Appearance CLEAR 06/18/17 21:45 Urine pH 6.0 (5.0-7.5) 06/18/17 21:45 Ur Specific [place] 1.016 (1.002-1.030) 06/18/17 21:45 Urine Protein NEGATIVE (NEGATIVE) 06/18/17 21:45 Urine Ketones NEGATIVE (NEGATIVE) 06/18/17 21:45 Urine Blood NEGATIVE (NEGATIVE) 06/18/17 21:45 Urine Nitrate NEGATIVE (NEGATIVE) 06/18/17 21:45 Urine Bilirubin NEGATIVE (NEGATIVE) 06/18/17 21:45 Urine Urobilinogen NEGATIVE EU (0.2-1.0) 06/18/17 21:45 Ur Leukocyte Esterase NEGATIVE (NEGATIVE) 06/18/17 21:45 Urine RBC 1-3 /hpf (0-3) 06/18/17 21:45 Urine WBC NONE SEEN /hpf (0-3) 06/18/17 21:45 Ur Epithelial Cells NONE SEEN /lpf (NONE-1+) 06/18/17 21:45 Urine Glucose NEGATIVE (NEGATIVE) 06/18/17 21:45 Imaging Review: Imaging Impressions Chest X-Ray 06/18/17 22:30 Impression: No definite pneumonia or pulmonary edema. Assessment & Plan Assessment: 82 yo M w/ hx of CAD s/p CABG presents with acute on chronic fatigue. Plan: 1. Fatigue - Patient describes 2 months of fatigue worsened on the day prior to admission after not getting much sleep after staying up all night working. He denies chest pain, fever, and any other symptoms of infection. His work-up in ED was relatively unremarkable with normal CBC, renal function, troponin, CXR, and stable ECG from prior. Physical exam notable for RUSB systolic murmur so I wonder if aortic valve pathology could be playing a role in his sub-acute fatigue symptoms. He had no noted on 2009 TTE. - Admit for observation - Monitor on telemetry, trend cardiac enzymes - Will order TTE to evaluate for valvular disease - PT/OT evaluations 2. Hx CAD - S/p CABG in 2006. Patient denies chest pain and states his symptoms do not resemble prior cardiac symptoms. - Monitor on telemetry, trend cardiac enzymes - Needs med reconciliation - I do not feel inpatient risk stratification is warranted at this time, although this could be pursued if symptoms worsen or change Diet - Regular Code - Full Ppx - LMWH Dispo - Admit under observation status
[2017-06-19 04:37] LABS: PLATELET COUNT 133 10^3/uL (150-400)
[2017-06-19 07:14] VITALS: O2SAT 94
[2017-06-19] MEDS ORDERED: ENOXAPARIN 40 MG/0.4 ML SYR SC SCH (09:00)
[2017-06-19] MEDS ORDERED: ASPIRIN 81 MG CHEWABLE TAB PO SCH (12:30)
--- NOTE | 2017-06-19 12:56 | ASMTCASEMG ---
Living Arrangements What is your living Answers: Alone arrangement? Who do you live with? Type Of Residence What kind of residence do Answers: House you live in? Discharge Plan Comments Coordination Status Comments Notes: Pts case discussed in morning rounds. Pt is a 82 y/o man admitted for weakness, fatigue and shortness of breath. Therapies have been ordered and awaiting recommendations. Needs are TBD at this time. CM to follow. Plan: TBD Date Signed: 06/19/2017 12:55 PM Electronically Signed By:TIM Nascimento
--- NOTE | 2017-06-19 16:44 | ECHO ---
[email or web address] [address] Main: [phone] Fax: Transthoracic Echocardiogram Name: RUBA HILL MR#: [id number] Study Date: 06/19/2017 Study Time: 02:07 PM Date of : 1935 Age: 82 year(s) Height: 175.3 cm (69 in.) Weight: 83.92 kg (185 lb.) BSA: 2 m2 Gender: Male Examination: Echo Indication: Murmur/fatigue, History CAD/CABG Image Quality: Technically Difficult Contrast: Requested by: Deyanira Buck BP: 123 mmHg/63 mmHg Heart Rate: Rhythm: Indication: Murmur/fatigue, History CAD/CABG Procedure Staff Clinical Massage Therapist: Dianne Cooper [facility] Reading Physician: Darlene Hollins Requesting Provider: Conclusions: Normal size left ventricle. No LV hypertrophy. Normal global systolic LV function. EF is 62 %. Normal size right ventricle. Normal RV function. Mild aortic valve regurgitation is present. No significant change compared with 06/2009 Measurements: Chambers Valvular Assessment AV/MV Valvular Assessment TV/PV Normal Normal Normal Name Value Range Name Value Range Name Value Range Ao Linette (2D): 3.6 cm (1.4 cm-2.6 AV meanP mmHg ( - ) TR Vmax: 2.82 mm/s ( - ) cm) LVOT Vmax: 0.71 m/s (0.7 m/s-1.1 TR PGmax: 32 mmHg ( - ) IVSd (2D): 0.6 cm (0.6 cm-1.1 m/s) syst. PAP: 37 mmHg ( - ) cm) CRISTI (VTI): 1.2 cm ( - ) LVDd (2D): 4.7 cm (4.2 cm-5.9 AR (PHT): 436 ms ( - ) cm) MV E Vmax: 0.63 m/s ( - ) LVDs (2D): 3.4 cm (2.1 cm-4 MV A Vmax: 1.11 m/s ( - ) cm) MV E/A: 0.57 ( - ) LVPWd (2D): 0.6 cm (0.6 cm-1 cm) LVOTd 2.1 cm 2.1 cm mm LVEF (MOD4): 62 % (>=55 %) Continued Measurements: Chambers Valvular Assessment AV/MV Valvular Assessment TV/PV Name Value Name Value Name Value Patient: RUBA HILL Study Date: 06/19/2017 Page 1 of 2 02:07 PM LADs Lon.0 cm MV E/E' Septal: 18.40 CVP (est.): 5 mmHg LA Area: 16.5 cm2 MV E/E' Lateral: 9.80 AR Vmax: 3.90 cm/s Additional Vessels Name Value Ao Ascendin.2 cm Findings: Left Ventricle: Normal size left ventricle. No LV hypertrophy. Normal global systolic LV function. EF is 62 %. Right Ventricle: Normal size right ventricle. Normal RV function. Left Atrium: The left atrium is normal in size. Right Atrium: The right atrium is normal in size. Mitral Valve: Mild mitral annular calcification. Trivial mitral valve regurgitation. Aortic Valve: Minimal aortic cusp calcification is noted. Mild aortic valve regurgitation is present. AV max PG is 21mmHG. AV mean PG is 11mmHG.. Tricuspid Valve: The tricuspid valve is normal in appearance and function. The pulmonary artery pressure is normal. Trivial tricuspid valve regurgitation. Pulmonic Valve: Pulmonary valve not well visualized. Aorta: The aorta is normal. Pericardium: No pericardial effusion. (No Signature Object) Patient: RUBA HILL Study Date: 06/19/2017 Page 2 of 2 02:07 PM [id number]
[2017-06-19 16:55] VITALS: BP 111/69; PULSE 76; RESP 19; TEMP 97.6
--- NOTE | 2017-06-19 17:16 | GDS ---
[f rep st] DISCHARGE SUMMARY DISCHARGE DIAGNOSES: 1. Fatigue. 2. Coronary artery disease status post CABG. HISTORY: Antonio Aiken is an 82-year-old male, who presented with a chief complaint of fatigue. He h as had this progressive over the last couple of months. He presented with [id number] fatigue, with some transient shortness of breath. 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 He presented to the emergency room and had a completely norm al evaluation, including laboratory studies, chest x-ray, and EKG. He was admitted for further obser vation. He returned to 100% baseline and was seen by Physical and Occupational Therapy and felt to b e safe to return home. Any fatigue and shortness of breath had resolved. He was felt to have a slig ht murmur on presentation. An echocardiogram was performed and was normal, without any significant v alvular disease. There is nothing to suggest acute coronary ischemia. DISCHARGE MEDICATIONS: Please see computer record for full detailed list. There are no new medicati ons given at time of hospital. DISCHARGE INSTRUCTIONS: Follow up primary care. /[id number]/MODL
[2017-06-19] MEDS ORDERED: DOCUSATE SODIUM 100 MG CAP PO SCH (21:00)
[2017-06-19] MEDS ORDERED: SENNOSIDES 1 TAB PO SCH (21:00)
[2017-06-20] MEDS ORDERED: FINASTERIDE 5 MG TAB PO SCH (09:00)
[2017-06-20] MEDS ORDERED: PRESERVISION AREDS2 FORMULA EYE VIT 1 EACH PO SCH (09:00)
== END 2017-06-19 17:50 | disposition home or self-care (01) ==
LOC: F2W 23:53
PROVIDERS: ADMIT Student in an Organized Health Care Education/Training Program; ATTEND Internal Medicine
DX: R53.83 Other fatigue (principal); R06.02 Shortness of breath; I25.10 Atherosclerotic heart disease of native coronary artery without angina pectoris; I25.2 Old myocardial infarction; E78.5 Hyperlipidemia, unspecified; I50.9 Heart failure, unspecified; Z79.82 Long term (current) use of aspirin; Z95.1 Presence of aortocoronary bypass graft
CPT/HCPCS: 71046; 93005; 93306; 97161; 97165; 99285; G0378; G8978; G8979; G8980; G8987; G8988; G8989; J1650

== ENCOUNTER 2017-07-07 11:07 | Emergency (ER) | payer OTHER ==
--- NOTE | 2017-07-07 11:58 | EDPHY ---
H & P Stated Complaint: URI sx x 2 days; non prod cough - Personal History Current Tetanus Diphtheria and Acellular Pertussis (TDAP): Yes - Medical/Surgical History Hx Asthma: No Hx Chronic Respiratory Disease: No Hx Diabetes: No Hx Cardiac Disease: Yes Hx Renal Disease: No Hx Cirrhosis: No Hx Alcoholism: No Hx HIV/AIDS: No Hx Splenectomy or Spleen Trauma: No Other PMH: [place], Cardiac Bypass (2006), hyperlipidemia, Prostate issues, bilat cataract surg. CHF, constipation - Social History Smoking Status: Never smoked Time Seen by Provider: 07/07/17 11:31 HPI/ROS: CHIEF COMPLAINT: Flu-like symptoms x3 days HISTORY OF PRESENT ILLNESS: 82-year-old male with history of coronary artery disease and CABG, did not receive a flu vaccine this year, complaining of 2-3 days of cough, myalgias, fever. No chest pain. No dyspnea. No back pain. No abdominal pain. No headache. No nuchal rigidity. No change in urine habits. No back or flank pain. Primary care provider: [facility] REVIEW OF SYSTEMS: A ten point review of systems was performed and is negative with the exception of the items mentioned in the HPI PAST MEDICAL & SURGICAL HISTORY: CABG SOCIAL HISTORY:Nonsmoker. 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 Appears to be in no acute distress. Speaking full sentences, no signs of respiratory distress 2) HEAD: Normocephalic, atraumatic 3) HEENT: Pupils equal, round, reactive to light bilaterally. Sclera anicteric. 4) NECK: Full range of motion, no meningeal signs. 5) LUNGS: Clear auscultation bilaterally, no wheezes, no rhonchi, no retractions. 6) HEART: Regular rate and rhythm, no murmur, no heave, no gallop. 7) ABDOMEN: No guarding, no rebound, no focal tenderness, 8) MUSCULOSKELETAL: Moving all extremities, no focal areas of tenderness, no obvious trauma. No peripheral edema or discoloration. 9) BACK: No CVA tenderness. 10) SKIN: No rash, no petechiae. 11) Psychiatric: Patient is oriented X 3, there is no agitation. DIFFERENTIAL DIAGNOSIS: In no particular order including but limited to pneumonia, bronchitis, PE (Meredith,Charity Susanne) Constitutional: Initial Vital Signs Temperature (C) 36.7 C 07/07/17 11:09 Heart Rate 82 07/07/17 11:09 Respiratory Rate 18 07/07/17 11:09 Blood Pressure 138/75 H 07/07/17 11:09 O2 Sat (%) 94 07/07/17 11:09 O2 Delivery Mode Room Air Allergies/Adverse Reactions: No Known Allergies Allergy (Verified 07/07/17 11:08) Home Medications: Medication Instructions Recorded Aspirin [Aspirin 81mg (*)] 81 mg PO DAILY 01/10/16 C/E/Zn/Cu/OM3/DHA/EPA/LUT/ZEAX 2 each PO DAILY 05/22/16 [Preservision Areds 2 Softgel] Multivitamins [Multivitamin (*)] 1 each PO DAILY 05/22/16 [place]-3 Fatty Acids [Fish Oil 1000 1,000 mg PO DAILY 05/22/16 mg (*)] Diclofenac Sodium 1% [Voltaren Gel 1 essie TP QID PRN 06/19/17 (*)] Docusate Sodium [Colace 100 MG (*)] 100 mg PO BID 06/19/17 Finasteride [Proscar 5 MG (*)] 5 mg PO DAILY 06/19/17 Loratadine [Claritin] 10 mg PO DAILY PRN 06/19/17 Sennosides 8.6 mg PO BID 06/19/17 Sodium Cl Nasal [Koppel Dolph (*)] 1 spray NS DAILY PRN 06/19/17 Vanicream [Vanicream (*)] 1 essie TP PRN PRN 06/19/17 Azithromycin 500 mg PO DAILY #6 tablet 07/07/17 Benzonatate [Tessalon Pearles (RX)] 200 mg PO TID PRN #7 cap 07/07/17 Medical Decision Making - Diagnostics Imaging Results: Imaging Impressions Chest X-Ray 07/07/17 11:44 Impression: No evidence for acute pneumonia. Chronic interstitial lung disease is present for at least 14 months. If further characterization is important, consider noncontrast high-resolution chest CT. Images reviewed myself (Charity Harper) ED Course/Re-evaluation: Patient was re-evaluated with serial examinations and old medical records reviewed. I reviewed his negative influenza testing and chest x-ray showing no focal infiltrate. He is maintain normal saturations, feels comfortable being discharged. Doubt CHF. Doubt PE. At this time I do not think that admission to hospital is indicated. I will start him on prophylactic antibiotics, given antitussive. He feels comfortable being discharged. Care of patient under supervision of secondary supervising physician Dr Matthew Pearson with whom I discussed case. (Charity Harper) I did not see this patient while he was in the emergency department. However his care was discussed with the PA while the patient was in the department. I agree with treatment plan and management (Matthew Pearson) - Data Points Laboratory Results: 07/07/17 12:30 Nasal Influenza A PCR NEGATIVE FOR FLU A (NEGATIVE) Nasal Influenza B PCR NEGATIVE FOR FLU B (NEGATIVE) Departure - Departure Disposition: Home, Routine, Self-Care Clinical Impression: Upper respiratory infection Qualifiers: URI type: unspecified URI Qualified Code(s): J06.9 - Acute upper respiratory infection, unspecified Condition: Good Instructions: Upper Respiratory Infection (ED) Additional Instructions: . Return to the emergency department immediately for change in breathing habits , change in voice, change in swallowing habits, change in mental status, or any other symptoms that concern you. Referrals: Follow-up, at the [facility] in 2-3 days [Other] - As per Instructions Prescriptions: Azithromycin 500 mg PO DAILY #6 tablet Benzonatate [Tessalon Pearles (RX)] 200 mg PO TID PRN #7 cap PRN Reason: Cough, Moderate
[2017-07-07 15:00] VITALS: BP 127/74; PULSE 79; RESP 16; TEMP 98.2; O2SAT 93
== END 2017-07-07 15:00 | disposition home or self-care (01) ==
DX: J06.9 Acute upper respiratory infection, unspecified (principal); I25.2 Old myocardial infarction; I25.810 Atherosclerosis of coronary artery bypass graft(s) without angina pectoris; Z79.82 Long term (current) use of aspirin

== ENCOUNTER 2017-07-17 16:58 | Emergency (ER) | payer OTHER ==
[2017-07-17 17:20] VITALS: TEMP 97.7
--- NOTE | 2017-07-17 17:36 | EDPHY ---
H & P Stated Complaint: Intermittent sharp pain under L axilla Time Seen by Provider: 07/17/17 17:35 - Personal History Current Tetanus Diphtheria and Acellular Pertussis (TDAP): Yes - Medical/Surgical History Hx Asthma: No Hx Chronic Respiratory Disease: No Hx Diabetes: No Hx Cardiac Disease: Yes Hx Renal Disease: No Hx Cirrhosis: No Hx Alcoholism: No Hx HIV/AIDS: No Hx Splenectomy or Spleen Trauma: No Other PMH: [place], Cardiac Bypass (2006), hyperlipidemia, Prostate issues, bilat cataract surg. CHF, constipation - Social History Smoking Status: Never smoked Constitutional: Initial Vital Signs Temperature (C) 36.5 C 07/17/17 17:10 Heart Rate 81 07/17/17 17:10 Respiratory Rate 18 07/17/17 17:10 Blood Pressure 109/73 07/17/17 17:10 O2 Sat (%) 92 07/17/17 17:10 O2 Delivery Mode Room Air Allergies/Adverse Reactions: No Known Allergies Allergy (Verified 07/17/17 17:16) Home Medications: Medication Instructions Recorded Aspirin [Aspirin 81mg (*)] 81 mg PO DAILY 01/10/16 C/E/Zn/Cu/OM3/DHA/EPA/LUT/ZEAX 2 each PO DAILY 05/22/16 [Preservision Areds 2 Softgel] Multivitamins [Multivitamin (*)] 1 each PO DAILY 05/22/16 [place]-3 Fatty Acids [Fish Oil 1000 1,000 mg PO DAILY 05/22/16 mg (*)] Diclofenac Sodium 1% [Voltaren Gel 1 essie TP QID PRN 06/19/17 (*)] Docusate Sodium [Colace 100 MG (*)] 100 mg PO BID 06/19/17 Finasteride [Proscar 5 MG (*)] 5 mg PO DAILY 06/19/17 Loratadine [Claritin] 10 mg PO DAILY PRN 06/19/17 Sennosides 8.6 mg PO BID 06/19/17 Sodium Cl Nasal [[place] (*)] 1 spray NS DAILY PRN 06/19/17 Vanicream [Vanicream (*)] 1 essie TP PRN PRN 06/19/17 Medical Decision Making - Diagnostics Imaging Results: Imaging Impressions Chest X-Ray 07/17/17 17:43 Impression: Chronic features, similar to 07/07/2017, with no new acute superimposed infiltrate or CHF. Imaging: Discussed imaging studies w/ call manager Radiologist, I viewed and interpreted images myself ED Course/Re-evaluation: CHIEF COMPLAINT: Intermittent chest pain HISTORY OF PRESENT ILLNESS: The patient is an 82 y/o male with cardiac disease history complaining of intermittent left axilla pain onset last night that feels similar to a prior KS 10 years ago that necessitated at CABGx4. He has had significant exhaustion for several months and was admitted for evaluation of this last month with a largely negative work up. He was seen in the ED 10 days ago with a cough and had another negative work up.Yesterday he slept poorly and felt fatigued throughout the day. When he went to lay down to sleep last night he had acute, sharp left lateral chest pain. The pain kept him up through the night so he called the nursing line this morning and was referred here for evaluation. No associated dyspnea, fever, diaphoresis, nausea, vomiting , recent illness, or recent trauma. REVIEW OF SYSTEMS: A 10 point review of systems was performed and is negative with the exception of the elements mentioned in the history of present illness. PHYSICAL EXAM: HR, BP, O2 Sat, RR. Temp noted General Appearance: Alert, well hydrated, appropriate, and non-toxic appearing. Head: Atraumatic without scalp tenderness or obvious injury Eyes: Pupils equal, round, reactive to light and accommodation, EOMI, no trauma , no injection. Nose: Atraumatic, no rhinorrhea, clear. Throat: Mucus membranes moist. Neck: Supple Respiratory: No retractions, no distress, no wheezes, and no accessory muscle use. Lungs are clear to auscultation bilaterally. Cardiovascular: Regular rate and rhythm, no murmurs, rubs, or gallops. Good capillary refill all extremities. Chest: Left lateral/posterior rib tenderness around 5th-6th rib Gastrointestinal: Abdomen is soft, nontender, non-distended, no masses, no rebound, no guarding, no peritoneal signs. Musculoskeletal: Normal active ROM of all extremities, atraumatic. Neurological: Alert, appropriate, and interactive. The patient has non-focal cranial nerves, motor, sensory, and cerebellar exam. Skin: No rashes, good turgor, no nodules on palpation. Past medical history: KS, hyperlipidemia, prostatic enlargement, CHF, constipation Past surgical history: CABGx4 2006, bilateral cataract surgery. Family history: Noncontributory Social history: Nonsmoker. Single. Lives in [place]. DIAGNOSTICS/PROCEDURES/CRITICAL CARE TIME: Chest x-ray: chronic changes, similar to prior x-ray from one week ago. The 12 lead EKG was interpreted by myself. Sinus mechanism. Nonspecific inferior T wave changes. Similar to two prior EKGs. See hard copy and/or "tracemaster" electronic copy for interpretation. DIFFERENTIAL DIAGNOSIS: The differential diagnosis for the patient's chest pain included but was not limited to myocardial ischemia, pulmonary embolus, chest wall pain, pleural inflammation, and pulmonary infectious causes. MEDICAL DECISION MAKING: This is an 82 y/o male with history of CAD, KS, and CABG x4 in 2006 who presents with less than 24-hour history of left lateral chest pain. No associated symptoms. On exam, he has reproducible left lateral rib tenderness around the 5th-6th rib. Presentation most consistent with rib injury, perhaps related to recent cough. Due to history, will rule out cardiopulmonary etiology with EKG, chest x-ray, IV, labs. Chest x-ray shows chronic changes. EKG similar to prior EKGs. Labs unremarkable. He declines pain medication or other treatment for his symptoms and would like to leave now to catch a bus home. He will be discharged with standard care and follow up instructions. Return precautions discussed. - Data Points Laboratory Results: Laboratory Results 07/17/17 17:45 07/17/17 17:45 07/17/17 07/17/17 07/17/17 17:45 17:45 17:45 WBC 6.02 10^3/uL 10^3/uL (3.80-9.50) RBC 4.71 10^6/uL 10^6/uL (4.40-6.38) Hgb 15.2 g/dL g/dL (13.7-17.5) Hct 43.7 % % (40.0-51.0) MCV 92.8 fL fL (81.5-99.8) MCH 32.3 pg pg (27.9-34.1) MCHC 34.8 g/dL g/dL (32.4-36.7) RDW 12.6 % % (11.5-15.2) Plt Count 146 10^3/uL L 10^3/uL (150-400) MPV 9.1 fL fL (8.7-11.7) Neut % (Auto) 58.2 % % (39.3-74.2) Lymph % (Auto) 28.2 % % (15.0-45.0) Steele % (Auto) 7.1 % % (4.5-13.0) Eos % (Auto) 5.3 % % (0.6-7.6) Baso % (Auto) 0.5 % % (0.3-1.7) Nucleat RBC Rel Count 0.0 % % (0.0-0.2) Absolute Neuts (auto) 3.50 10^3/uL 10^3/uL (1.70-6.50) Absolute Lymphs (auto) 1.70 10^3/uL 10^3/uL (1.00-3.00) Absolute Monos (auto) 0.43 10^3/uL 10^3/uL (0.30-0.80) Absolute Eos (auto) 0.32 10^3/uL 10^3/uL (0.03-0.40) Absolute Basos (auto) 0.03 10^3/uL 10^3/uL (0.02-0.10) Absolute Nucleated RBC 0.00 10^3/uL 10^3/uL (0-0.01) Immature Gran % 0.7 % % (0.0-1.1) Immature Gran # 0.04 10^3/uL 10^3/uL (0.00-0.10) PT 14.9 SEC SEC (12.0-15.0) INR 1.15 (0.83-1.16) APTT 35.5 SEC SEC (23.0-38.0) D-Dimer 0.46 ug/mLFEU ug/mLFEU (0.00-0.50) Sodium 141 mEq/L mEq/L (135-145) Potassium 4.5 mEq/L mEq/L (3.5-5.2) Chloride 105 mEq/L mEq/L (97-110) Carbon Dioxide 26 mEq/l mEq/l (22-31) Anion Gap 10 mEq/L mEq/L (8-16) BUN 20 mg/dL mg/dL (7-23) Creatinine 0.9 mg/dL mg/dL (0.7-1.3) Estimated GFR > 60 Glucose 97 mg/dL mg/dL (70-100) Calcium 9.5 mg/dL mg/dL (8.5-10.4) Troponin I < 0.012 ng/mL ng/mL (0.000-0.034) NT-Pro-B Natriuret Pep 395 pg/mL pg/mL (0-450) Departure - Departure Disposition: Home, Routine, Self-Care Clinical Impression: Rib pain on left side Condition: Good Instructions: Rib Contusion (ED) Additional Instructions: 1. You can take 400mg ibuprofen every 6-8 hours as needed for pain over the next few days if needed. 2. You can also try applying an ice pack or warm compress intermittently on the site if it helps your pain. 3. Follow up with your primary care provider for unimproved symptoms over the next few days. 4. Return to the ED for worsening of condition. Referrals: [facility],. [Clinic] - As per Instructions Report Scribed for: Ryan Goodson Report Scribed by: Angela Chung Date of Report: 07/17/17 Time of Report: 17:52
[2017-07-17 17:39] VITALS: RESP 16
--- NOTE | 2017-07-17 17:39 | CPEKG ---
Heart Rate: 72 RR Interval: 833 P-R Interval: 220 QRSD Interval: 114 QT Interval: 420 QTC Interval: 460 P Taylor: 70 QRS Taylor: -39 T Wave Taylor: 44 EKG Severity - ABNORMAL ECG - EKG Impression: SINUS RHYTHM EKG Impression: FIRST DEGREE AV BLOCK EKG Impression: NONSPECIFIC IVCD WITH LAD Electronically Signed By: Ryan Goodson 17-Jul-2017 21:53:52
[2017-07-17 17:46] VITALS: O2SAT 94
[2017-07-17 18:06] LABS: PLATELET COUNT 146 10^3/uL (150-400)
[2017-07-17 18:13] LABS: INR 1.15 (0.83-1.16); PROTIME(PATIENT) 14.9 SEC (12.0-15.0)
[2017-07-17 18:30] VITALS: BP 139/68; PULSE 64
== END 2017-07-17 18:30 | disposition home or self-care (01) ==
DX: R07.81 Pleurodynia (principal); I25.2 Old myocardial infarction; I50.9 Heart failure, unspecified; Z79.82 Long term (current) use of aspirin; Z95.1 Presence of aortocoronary bypass graft

== ENCOUNTER 2017-08-01 17:19 | Inpatient (IN) | payer OTHER ==
--- NOTE | 2017-08-01 17:29 | CPEKG ---
Heart Rate: 70 RR Interval: 857 P-R Interval: 232 QRSD Interval: 114 QT Interval: 412 QTC Interval: 445 P Cascade: 62 QRS Cascade: -38 T Wave Cascade: 52 EKG Severity - ABNORMAL ECG - EKG Impression: SINUS RHYTHM EKG Impression: FIRST DEGREE AV BLOCK EKG Impression: NONSPECIFIC IVCD WITH LAD EKG Impression: CONSIDER ANTERIOR INFARCT Electronically Signed By: Linda Boswell 01-Aug-2017 21:04:05
[2017-08-01 17:46] LABS: PLATELET COUNT 132 10^3/uL (150-400)
--- NOTE | 2017-08-01 18:10 | EDPHY ---
H & P Time Seen by Provider: 08/01/17 17:25 HPI/ROS: CHIEF COMPLAINT: Chest pain, dizziness HISTORY OF PRESENT ILLNESS: 82-year-old male with CAD, s/p CABG, presents with chest pain and dizziness. He was carrying groceries into his house, when he developed moderate chest discomfort, that radiated to his left axilla, associated with dizziness. Substernal chest pain, described as pressure. The symptoms lasted about an hour and now have completely resolved. Took ASA just prior to arrival. He became concerned because the symptoms are similar to prior CO. No recent URI/fever/SOB REVIEW OF SYSTEMS: Constitutional: No fever, no chills Eyes: No visual changes ENT: No sore throat Respiratory: No cough, no shortness of breath Gastrointestinal: No nausea, no vomiting, no abdominal pain Genitourinary: No hematuria, no dysuria Musculoskeletal: No leg pain or swelling Skin: No rash Neurological: No headache, no weakness Psychiatric: No depression Past Medical/Surgical History: CAD CABG 10 years ago Social History: No recent alcohol Smoking Status: Never smoked Physical Exam: General Appearance: Alert, pleasant Eyes: Pupils equal and round, no conjunctival pallor or injection ENT, Mouth: Mucous membranes moist Neck: Normal inspection Respiratory: Lungs are clear to auscultation Cardiovascular: Regular rate and rhythm Gastrointestinal: Abdomen is soft and nontender Neurological: A&O, nonfocal, normal gait Skin: Warm and dry, no rash Extremities: Nontender, no pedal edema Psychiatric: Mood and affect normal Constitutional: Initial Vital Signs Temperature (C) 36.4 C 08/01/17 17:27 Heart Rate 64 08/01/17 17:27 Respiratory Rate 14 08/01/17 17:27 Blood Pressure 149/80 H 08/01/17 17:27 O2 Sat (%) 97 08/01/17 17:27 O2 Delivery Mode Room Air Allergies/Adverse Reactions: No Known Allergies Allergy (Verified 07/17/17 17:16) Home Medications: Medication Instructions Recorded Aspirin [Aspirin 81mg (*)] 81 mg PO DAILY 01/10/16 C/E/Zn/Cu/OM3/DHA/EPA/LUT/ZEAX 2 each PO DAILY 05/22/16 [Preservision Areds 2 Softgel] Multivitamins [Multivitamin (*)] 1 each PO DAILY 05/22/16 [place]-3 Fatty Acids [Fish Oil 1000 1,000 mg PO DAILY 05/22/16 mg (*)] Finasteride [Proscar 5 MG (*)] 5 mg PO DAILY 06/19/17 Sodium Cl Nasal [[employer] (*)] 1 spray NS DAILY PRN 06/19/17 Vanicream [Vanicream (*)] 1 essie TP DAILY PRN 06/19/17 Medical Decision Making - Diagnostics EKG Interpretation: EKG interpreted by me reveals normal sinus rhythm, rate 70, poor R-wave progression, no ST or T segment changes. ED Course/Re-evaluation: This pt with known CAD presents with typical cardiac symptoms, concerning for ACS. stat EKG reveals no evidence of ischemia/infarct. Pt asymptomatic, already took ASA. Initial troponin normal. telemetry monitor revealed NSR throughout ED stay. Will need further cardiac eval as inpt. The hospitalist service was consulted for admission. Differential Diagnosis: Differential diagnosis includes though it is not limited to pneumonia, pneumothorax, pulmonary embolism, aortic dissection, pericarditis, acute coronary syndrome. - Data Points Laboratory Results: Laboratory Results 08/01/17 17:30 08/01/17 17:30 Medications Given: Aspirin (Aspirin) 81 mg PO DAILY MAURICIO Stop: 01/29/18 08:59 Last Admin: 08/04/17 09:47 Dose: 81 mg Enoxaparin Sodium (Lovenox) 40 mg SC DAILY MAURICIO Stop: 01/29/18 08:59 Last Admin: 08/04/17 09:48 Dose: 40 mg Finasteride (Proscar) 5 mg PO DAILY MAURICIO Stop: 01/29/18 08:59 Last Admin: 08/04/17 09:48 Dose: 5 mg Multivitamins (Tab-A-Suzie) 1 each PO DAILY MAURICIO Stop: 01/29/18 08:59 Last Admin: 08/04/17 09:48 Dose: 1 each Multivitamins/Minerals (Preservision Areds2 Formula) 2 each PO DAILY MAURICIO Stop: 01/29/18 08:59 Last Admin: 08/04/17 09:48 Dose: 2 each [id number]-[id number] Ethyl Esters (Fish Oil) 1,000 mg PO DAILY MAURICIO Stop: 01/29/18 08:59 Last Admin: 08/04/17 09:48 Dose: 1,000 mg Departure - Departure Disposition: [facility] Clinical Impression: Chest pain, rule out acute myocardial infarction Condition: Fair
[2017-08-01] MEDS ORDERED: ONDANSETRON DISINTEGRATING 4 MG TAB PO PRN (18:35)
[2017-08-01] MEDS ORDERED: ACETAMINOPHEN 325 MG TAB PO PRN (18:35)
[2017-08-01] MEDS ORDERED: ONDANSETRON 4 MG/2 ML VIAL IVP PRN (18:35)
[2017-08-01] MEDS ORDERED: SODIUM CL NASAL 45 ML BTL NS PRN (20:54)
[2017-08-01] MEDS ORDERED: VANICREAM CREAM TP PRN (20:54)
--- NOTE | 2017-08-01 21:19 | GHP ---
[f rep st] HISTORY AND PHYSICAL DATE OF ADMISSION: 08/01/2017 CHIEF COMPLAINT: Chest pain. HISTORY OF PRESENT ILLNESS: An 82-year-old male, with an extensive cardiac history including CABG, alison ibrahim presents with sudden onset of chest pain the evening of presentation. Patient lives independently , completes all his grocery shopping and ADLs at home without assistance. He was returning home afte r a shopping trip to the grocery store and carrying his groceries by hand into his living space, when he was shoving a door open using his left arm and developed a sensation that he describes across his entire body that felt similar to when he had his initial heart attack leading to his CABG. He was f eeling so concerned about this sensation that he decided to take a taxicab to the emergency departmen t for evaluation. Describes no associated shortness of breath with this sensation. No specific palp itations. Did have some discomfort of his left arm and left chest that he describes now has spontane ously resolved. Denies any nausea, vomiting. Denies any dysuria, hematuria, lower extremity edema. Reports a recent bout of very bad constipation, which he has recovered from by eating a healthy diet and patient has been stooling every day. Denies any blood in his stools or blood in his urine. PAST MEDICAL HISTORY: 1. Coronary artery disease, status post CABG. 2. BPH. 3. A lazy right eye. SOCIAL HISTORY: Patient lives independently. Denies alcohol, tobacco, or illicit drugs. FAMILY HISTORY: Positive for cancer. ADVANCED DIRECTIVES: The patient wishes to be full COR, full tube. REVIEW OF SYSTEMS: A 10-point review of systems is negative with the exception of that reported in t he HPI. PHYSICAL EXAMINATION: VITAL SIGNS: Blood pressure 134/72, heart rate 70, respiratory rate 16, 93% o n room air. GENERAL: This is a very healthy-appearing 82-year-old male, sitting up in his chair, ea ting his dinner. HEENT: Notable for moist mucous membranes. Eye exam is notable for his lazy right eye. CARDIAC: Patient has regular rate and rhythm. A systolic murmur is appreciated. PULMONARY: Clear to auscultation bilaterally. GASTROINTESTINAL: Positive bowel sounds. Abdomen is soft and n ontender in all 4 quadrants. MUSCULOSKELETAL: Negative for any lower extremity edema. SKIN: Negati ve for any rashes. NEUROLOGIC: He is alert and oriented x3. PSYCHIATRIC: He is pleasant and coope rative on the interview and examination. DATA: White count 5.3, hematocrit 44.4. Troponin less than 0.012. Creatinine 0.9. EKG, which I pe rsonally reviewed and interpreted, shows sinus rhythm, leftward axis deviation, with no acute ST-T ch anges. Patient has first-degree AV block. NE interval is 232. ASSESSMENT AND PLAN: This is an 82-year-old male, with a history of coronary artery disease, status post coronary artery bypass grafting, who presents with atypical chest pain. 1. Atypical chest pain. I am not convinced this is cardiac in nature. Will rule the patient out ov ernight, continuing his normal cardiac medications. I believe if he rules out, he could be a carlito te for disposition without additional stress testing in the inpatient setting. Would discuss the hugh e with Cardiology to verify he could have prompt outpatient followup for stress testing. 2. Coronary artery disease. The patient has been quite stable. Echocardiogram performed 06/19/2017 , shows an ejection fraction of 64% without hypertrophy. I am not sure there is any reason to repeat this during this stay. 3. Benign prostatic hypertrophy. Will continue with home medications. 4. Prophylaxis with Lovenox. 5. Diet cardiac. 6. Disposition. I expect less than 2 midnights. If the patient rules out overnight, I believe he c ould be a candidate for disposition without additional stress testing. I have discussed the case with the emergency room physician. Patient will be triaged to the [facility] for care. /[id number]/MODL
[2017-08-02] MEDS: ENOXAPARIN 40 MG/0.4 ML SYR SC SCH (09:59)
[2017-08-02] MEDS: OMEGA-3 FATTY ACIDS 1,000 MG CAP PO SCH (10:00)
[2017-08-02] MEDS: MULTIVITAMINS 1 EACH TAB PO SCH (10:00)
[2017-08-02] MEDS: FINASTERIDE 5 MG TAB PO SCH (10:00)
[2017-08-02] MEDS: PRESERVISION AREDS2 FORMULA EYE VIT 1 EACH PO SCH (10:00)
[2017-08-02] MEDS: ASPIRIN 81 MG CHEWABLE TAB PO SCH (10:00)
--- NOTE | 2017-08-02 10:34 | HOSPPROG ---
Hospitalist Progress Note Assessment/Plan: 82-year-old man with a history of coronary artery disease. He is status post 5 vessel CABG 11 years ago and has not had any further intervention since then. He is admitted with an episode of sharp chest pain followed by lightheadedness which is quite similar to his previous heart attack 11 years ago. His troponins have been negative and his EKG is nonischemic. # chest pain in the setting of coronary artery disease. Somewhat atypical however similar to his previous angina. Patient gets his care at the [facility] in [place] and it seems unlikely that he would be able to get in for a stress test quickly * Order Lexiscan stress test here * Disposition depending on results * Patient currently pain-free * Unfortunately patient had caffeine this morning. High risk for coronary artery disease given the previous history and recurrent symptoms I do feel like a Lexiscan would be required prior to discharge. He will need and no other midnight stay. # BPH # DVT prophylaxis on Lovenox Subjective: Patient new to me and chart reviewed. He is feeling good today and anxious to get home. He is chest pain-free. 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) Ears, Nose, Mouth, Throat: moist mucous membranes Cardiovascular: regular rate and rhythym Respiratory: no respiratory distress, clear to auscultation Gastrointestinal: normoactive bowel sounds, soft, non-tender abdomen Skin: warm Musculoskeletal: full muscle strength Neurologic: AAOx3 Psychiatric: interacting appropriately, not anxious ICD10 Worksheet Patient Problems: Problems Problem Status Onset Fall Acute Epistaxis Acute Nasal bone fracture Acute Laceration of nose Acute Pneumonia Acute Chest pain Acute Shortness of breath Acute Chest pain, rule out acute myocardial infarction Acute Fatigue Acute
--- NOTE | 2017-08-02 12:36 | PDMN ---
Medical Necessity Medical necessity: C/M review: est. > 2 MN LOS for eval and TX of acute chest pain similar to previous angina in the setting of CAD requiring planned 2017 Lexiscan stress test (unable to do test 08/02/2017 as patient has caffeine 08/02/2017 AM), ongoing cardiac monitoring, comorbid history of CAD S/P five vessel CABG (11 years ago), heart attack 11 years ago per 08/02/2017 Hospitalist progress note.
--- NOTE | 2017-08-02 16:52 | ASMTCMCOM ---
CM Note CM Note Notes: Pt admitted with chest pain in the setting of CAD. 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 No PT/OT ordered. Anticipate dc home independently when medically stable. CM available if needs/changes. Date Signed: 08/02/2017 04:52 PM Electronically Signed By:Ida Dumont RN
[2017-08-03] MEDS: MULTIVITAMINS 1 EACH TAB PO SCH (08:11)
[2017-08-03] MEDS: PRESERVISION AREDS2 FORMULA EYE VIT 1 EACH PO SCH (08:11)
[2017-08-03] MEDS: ASPIRIN 81 MG CHEWABLE TAB PO SCH (08:11)
[2017-08-03] MEDS: OMEGA-3 FATTY ACIDS 1,000 MG CAP PO SCH (08:11)
[2017-08-03] MEDS: FINASTERIDE 5 MG TAB PO SCH (08:11)
[2017-08-03] MEDS: ENOXAPARIN 40 MG/0.4 ML SYR SC SCH (08:11)
[2017-08-03] MEDS ORDERED: REGADENOSON 0.4 MG/5 ML SYR IVP ONE (09:21)
--- NOTE | 2017-08-03 10:30 | CPR ---
[f rep st] NONINVASIVE CARDIAC PROCEDURE REPORT PROCEDURE PERFORMED: Lexiscan Cardiolite stress test. Baseline EKG normal. Post infusion EKG normal. INDICATION FOR PROCEDURE: Chest discomfort reminiscent of the patient's discomfort prior to CABG. PROCEDURE: Informed consent was obtained. Lexiscan was injected per protocol, followed by Cardiolit e. The patient tolerated the procedure well without any complications. Nuclear portion of the stres s test will be reported by the radiologist. /[id number]/MODL
--- NOTE | 2017-08-03 13:02 | HOSPPROG ---
Hospitalist Progress Note Assessment/Plan: 82-year-old man with a history of coronary artery disease. He is status post 5 vessel CABG 11 years ago and has not had any further intervention since then. He is admitted with an episode of sharp chest pain followed by lightheadedness which is quite similar to his previous heart attack 11 years ago. His troponins have been negative and his EKG is nonischemic. # chest pain in the setting of coronary artery disease. Somewhat atypical however similar to his previous angina. Patient gets his care at the [facility] in [place] and it seems unlikely that he would be able to get in for a stress test quickly * Lexiscan test was abnormal with some anterior defects noted * Discussed with Dr. Porter will get a rest study tomorrow morning and keep him NPO in case it is ischemia * Patient currently pain-free # BPH # DVT prophylaxis on Lovenox Subjective: Discussed results of his test in detail. Discussed prognosis and further testing needed. Patient is pain free Objective: Vital Signs Temp Pulse Resp BP Pulse Ox 36.9 C 75 10 L 145/76 H 98 08/03/17 11:43 08/03/17 11:43 08/03/17 11:43 08/03/17 11:43 08/03/17 11:43 Laboratory Results 08/02/17 03:26 08/02/17 08/03/17 08/04/17 05:59 05:59 05:59 Intake Total 250 1120 Balance 250 1120 - Time Spent With Patient Time Spent with Patient: greater than 25 minutes Time Spent with Patient: Greater than 25 minutes spent on this patients care, greater than 50% of time spent counseling, educating, and coordinating care regarding the above mentioned plan. - Physical Exam Constitutional: no apparent distress Eyes: PERRL Ears, Nose, Mouth, Throat: moist mucous membranes Cardiovascular: regular rate and rhythym Respiratory: no respiratory distress ICD10 Worksheet Patient Problems: Problems Problem Status Onset Fall Acute Epistaxis Acute Nasal bone fracture Acute Laceration of nose Acute Pneumonia Acute Chest pain Acute Shortness of breath Acute Chest pain, rule out acute myocardial infarction Acute Fatigue Acute
[2017-08-04] MEDS: ASPIRIN 81 MG CHEWABLE TAB PO SCH (09:47)
[2017-08-04] MEDS: OMEGA-3 FATTY ACIDS 1,000 MG CAP PO SCH (09:48)
[2017-08-04] MEDS: MULTIVITAMINS 1 EACH TAB PO SCH (09:48)
[2017-08-04] MEDS: ENOXAPARIN 40 MG/0.4 ML SYR SC SCH (09:48)
[2017-08-04] MEDS: PRESERVISION AREDS2 FORMULA EYE VIT 1 EACH PO SCH (09:48)
[2017-08-04] MEDS: FINASTERIDE 5 MG TAB PO SCH (09:48)
[2017-08-04] MEDS ORDERED: ATORVASTATIN CALCIUM 40 MG TAB PO SCH (11:45)
--- NOTE | 2017-08-04 12:12 | ASMTCMCOM ---
CM Note CM Note Notes: 08/04/2017 Case Management Note Discussed pt during mutli disciplinary rounds this morning. There are no case management d/c needs identified. [facility] Case Management d/c poc: home independent with follow up as directed. Case Management available if needs change. Date Signed: 08/04/2017 12:11 PM Electronically Signed By:Molly Rao RN
--- NOTE | 2017-08-04 14:15 | HOSPPROG ---
Hospitalist Progress Note Assessment/Plan: 82-year-old man with a history of coronary artery disease. He is status post 5 vessel CABG 11 years ago and has not had any further intervention since then. He is admitted with an episode of sharp chest pain followed by lightheadedness which is quite similar to his previous heart attack 11 years ago. His troponins have been negative and his EKG is nonischemic. # chest pain in the setting of coronary artery disease. Somewhat atypical however similar to his previous angina. Patient gets his care at the [facility] in [place] and it seems unlikely that he would be able to get in for a stress test quickly * Lexiscan test with rest images was equivocal. * Consult it with Cardiology who recommended medical management, the patient is in agreement * Start metoprolol 12.5 daily * Monitor symptoms and blood pressure overnight, DC in a.m. If asymptomatic * Follow-up with [facility] as outpatient # BPH # DVT prophylaxis on Lovenox Subjective: Patient denies chest pain but fearful he may have heart disease. No further pain or shortness of breath in the hospital Objective: Vital Signs Temp Pulse Resp BP Pulse Ox 36.6 C 64 19 112/56 L 93 08/04/17 04:00 08/04/17 10:58 08/04/17 10:58 08/04/17 10:58 08/04/17 10:58 Laboratory Results 08/02/17 03:26 08/03/17 08/04/17 08/05/17 05:59 05:59 05:59 Intake Total 1120 300 Balance 1120 300 - Physical Exam Constitutional: no apparent distress Eyes: PERRL Ears, Nose, Mouth, Throat: moist mucous membranes Cardiovascular: regular rate and rhythym Respiratory: no respiratory distress, reduced air movement Gastrointestinal: normoactive bowel sounds Genitourinary: no bladder fullness Skin: warm Neurologic: AAOx3, No facial droop Psychiatric: interacting appropriately, not anxious ICD10 Worksheet Patient Problems: Problems Problem Status Onset Fall Acute Epistaxis Acute Nasal bone fracture Acute Laceration of nose Acute Pneumonia Acute Chest pain Acute Shortness of breath Acute Chest pain, rule out acute myocardial infarction Acute Fatigue Acute
[2017-08-04] MEDS: ATORVASTATIN CALCIUM 20 MG TAB PO SCH (15:21)
[2017-08-04] MEDS: METOPROLOL SUCCINATE XR 25 MG TAB PO SCH (15:21)
--- NOTE | 2017-08-04 19:03 | GCON ---
[f rep st] CONSULTATION CARDIAC CONSULTATION DATE OF CONSULTATION: 08/04/2017 CHIEF COMPLAINT: Chest pain and dizziness. HISTORY OF PRESENT ILLNESS: The patient is an 82-year-old male with a history of hyperlipidemia and coronary artery disease, status post CABG 11 years ago admitted with chest pain. He is followed at the [facility]. He had been feeling well and decided to go to the grocery store. He was caring 2 bags and trying to open his front door at which time he developed chest pain. It lasted for a second and then resolved. This was associated with a little dizziness and felt similar to his prior angina. He ultimately decided to proceed to the emergency room. His troponins have been negative x3. His EKG is nonischemic. He had a nuclear stress test which was equivocal for anterior wall emily-infarct ischemia. He has been chest-pain free since admission to the hospital. Prior to admission, he was walking on a regular basis without chest discomfort or dyspnea on exertion. PAST MEDICAL HISTORY: Hyperlipidemia, chronic constipation. SOCIAL HISTORY: He enjoys writing. He denies any significant tobacco or alcohol use. He currently lives at home by himself. HOME MEDICATIONS: Aspirin 81 mg daily, fish oil daily, multivitamin daily, Proscar 5 mg daily, Lipitor 20 mg daily. ALLERGIES: No known drug allergies. REVIEW OF SYSTEMS: Negative except for what is stated in the H and P. PHYSICAL EXAMINATION: GENERAL: Patient appears in no acute distress. VITALS: Blood pressure 114/56, heart rate 64, oxygen saturation 93% on room air, afebrile. LUNGS: Clear to auscultation. No wheezes, rhonchi, or crackles auscultated. CARDIAC: Regular rate and rhythm without any murmurs, rubs, or gallops appreciated. ABDOMEN: Soft, nontender, nondistended. Bowel sounds present. EXTREMITIES: Palpable pulses bilaterally without any evidence of edema. NEUROLOGIC: Nonfocal. PSYCHIATRIC: Mood and affect appropriate. LABORATORY: Troponins negative x3. DIAGNOSTIC STUDIES: His nuclear stress test showed equivocal anterior wall emily -infarct ischemia. His EKG reveals normal sinus rhythm with heart rate of 70. He has a first-degree AV block with a VT interval of 232. 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 ASSESSMENT: The patient is an 82-year-old male with a history of coronary artery disease and bypass surgery who presents with chest pain. The patient has a history of coronary artery disease, status post 5-vessel CABG 11 years ago. He presented to the hospital with atypical chest pain complaining of central chest discomfort which lasted for less than a second. He denies any recurrent chest pain. His nuclear stress test did show equivocal anterior ischemia. I think he would be a great candidate for medical therapy. Options including medical therapy versus angiogram were discussed with him, and he would prefer medical therapy as well. He will be started on Toprol 12.5 mg daily and will be monitored overnight. If he is able to tolerate 12.5 mg, I would consider titrating this to 25 daily. He will continue aspirin and Lipitor. [facility] /[id number]/MODL MTDD
[2017-08-05 07:52] VITALS: BP 117/74
[2017-08-05] MEDS: PRESERVISION AREDS2 FORMULA EYE VIT 1 EACH PO SCH (09:10)
[2017-08-05] MEDS: ATORVASTATIN CALCIUM 20 MG TAB PO SCH (09:10)
[2017-08-05] MEDS: MULTIVITAMINS 1 EACH TAB PO SCH (09:10)
[2017-08-05] MEDS: OMEGA-3 FATTY ACIDS 1,000 MG CAP PO SCH (09:10)
[2017-08-05] MEDS: ASPIRIN 81 MG CHEWABLE TAB PO SCH (09:10)
[2017-08-05] MEDS: METOPROLOL SUCCINATE XR 25 MG TAB PO SCH (09:10)
[2017-08-05] MEDS: FINASTERIDE 5 MG TAB PO SCH (09:10)
[2017-08-05] MEDS: ENOXAPARIN 40 MG/0.4 ML SYR SC SCH (09:13)
--- NOTE | 2017-08-05 11:16 | GDS ---
[f rep st] DISCHARGE SUMMARY DIAGNOSES: 1. Chest pain, atypical. 2. History of coronary artery disease. 3. Benign prostatic hypertrophy. PROCEDURES DONE: Myocardial perfusion scan with and without rest, showing a tiny fixed defect at the level of the distal septum with some equivocal perfusion reversal. CONSULTATIONS: Cardiology. HOSPITAL COURSE: The patient is an 82-year-old with a history of heart disease status post CABG, tiffani t has been asymptomatic since his surgery. He comes in with a brief episode of chest pain lasting a few seconds. He was admitted overnight. His troponins remain negative. His EKG remained nonischemic. He underwe nt the above procedure, which showed some equivocal results, so Cardiology was consulted. They had a long discussion with the patient regarding possible angiogram versus medical management, and the car diologist and the patient agreed that medical management was acceptable and preferable at this time. They started him on low-dose metoprolol, which he tolerated well. He was observed an additional night and had a very short run of nonsustained ventricular tachycardia, which was asymptomatic. Cardiology was aware of this and felt that he was still safe for discharge home, without further evaluation. The patient never had any recurrent chest pain. He will be discharging home with metoprolol 12.5 daily and follow up with the [facility] as so on as he can. He had no other symptoms during his hospitalization. DISCHARGE MEDICATIONS: Please see discharge medication form. FOLLOWUP: He needs to follow up with the [facility] regarding his chest pain. Total time spent with this patient on the day of discharge and coordination of care is 35 minutes. /[id number]/MODL
--- NOTE | 2017-08-05 12:21 | ASDISCHSUM ---
Discharge Information Plan Status:Home with No Needs Medically Cleared to Leave:08/05/2017 Discharge Date:08/05/2017 11:26 AM CM D/C Disposition:Home, Routine, Self-Care ADT D/C Disposition:Home, Routine, Self-Care Projected Discharge Date:08/05/2017 11:26 AM Transportation at D/C: Discharge Delay Reason: Follow-Up Date:08/05/2017 11:26 AM Discharge Slot: Final Diagnosis: Placement Information Patient Contact Information Contact Name:WANDA Relationship:Sister Address:[address] City:[place] Alternate Phone: State/Zip Code:[place] [address] Email: Financial Information Financial Class:Medicare Primary Plan Desc:MEDICARE INPATIENT Primary Plan Number:[id number] Secondary Plan Desc: Secondary Plan Number: Assessment Information [facility] CM Progress Note CM Note CM Note Notes: Pt admitted with chest pain in the setting of CAD. 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 No PT/OT ordered. Anticipate dc home independently when medically stable. CM available if needs/changes. Date Signed: 08/02/2017 04:52 PM Electronically Signed By:Ida Dumont RN LACE LACE Length of stay for Answers: 3 days current admission Acuity / Level of Answers: Yes Care: Did the patient have an inpatient admission? Comorbidities - select Answers: Coronary Artery Disease all that apply Other Notes: BPH # of Emergency department Answers: 5-8 visits in the last 6 months Score: 13 Date Signed: 08/05/2017 12:20 PM Electronically Signed By:Molly Rao RN [facility] CM Progress Note CM Note CM Note Notes: 08/04/2017 Case Management Note Discussed pt during mutli disciplinary rounds this morning. There are no case management d/c needs identified. Pt medical care is through the [facility] system. Case Management d/c poc: home independent with follow up as directed. Case Management available if needs change. Date Signed: 08/04/2017 12:11 PM Electronically Signed By:Molly Rao RN Intervention Information Intervention Type:*IM-Signed Date of Service:08/05/2017 12:19 PM Patient Type:Inpatient Staff Member:DARRELL Rao, Molly Hours: Discipline: Severity: Comment:
--- NOTE | 2017-08-05 12:26 | PDCARPN ---
Cardiology Progress Note Chief Complaint: chest pain Assessment/Plan: Assessment/Plan: Damion is a 82 y/o with a history of HLP and CAD s/p CABG 11 years ago. He was returning from the grocery store carrying two bags of groceries when he developed chest pain. The pain actually occured while he was swinging the bags into his house. His discomfort lasted for one second and then resolved. His troponins are negative and he denies any further chest discomfort. A nuclear stress test showed a possible anterior defect with periinfarct ischemia. Treatment options including a angiogram versus medical management were discussed with him and he preferred medical management. He was started on Toprol 12.5mg and tolerated it well. That evening he had one run of a wide complex tachycardia likely 8 NSVT. He still prefers medical therapy which I think it reasonable given his low risk stress test and lack of angina. He will continue Aspirin, Lipitor, and Toprol XL. He will follow up at the [place] in 1-2 week 08/05/17 12:28 Subjective: HE denies any further chest discomfort or FELDER. He denies any symptoms with his arrhythmia. Reviewed/Discussed With: hospitalist Objective: Vital Signs (8 Hrs) Temp Pulse Resp BP Pulse Ox 08/05/17 07:51 36.6 C 58 L 18 117/74 94 Intake/Output (24 Hrs) 08/04/17 08/05/17 08/06/17 05:59 05:59 05:59 Intake Total 300 780 Balance 300 780 Intake: Oral (ml) 300 780 Other: Number of Voids Toilet 2 Number of Stools Toilet 2 tele- NSR with 8 beat run of NSVT Result Diagrams: 08/01/17 17:30 08/02/17 03:26 Cardiac Labs: Cardiac Lab Results (72 Hrs) 08/03/17 08:30 Troponin I < 0.012 - Physical Exam Constitutional: WDWN Cardiovascular: regular rate and rhythm, no rubs, no gallops, systolic murmur () Respiratory: clear to auscultate bilat Neurologic: AAOx3 ICD10 Worksheet Patient Problems: Problems Problem Status Onset Chest pain Acute Chest pain, rule out acute myocardial infarction Acute Epistaxis Acute Fall Acute Fatigue Acute Laceration of nose Acute Nasal bone fracture Acute Pneumonia Acute Shortness of breath Acute
== END 2017-08-05 11:26 | disposition home or self-care (01) | DRG 313 ==
LOC: OBSVTOIN 18:35 → F2W 20:17
PROVIDERS: ADMIT Hospitalist; ATTEND Hospitalist
DX: R07.89 Other chest pain (principal); I25.10 Atherosclerotic heart disease of native coronary artery without angina pectoris; N40.0 Benign prostatic hyperplasia without lower urinary tract symptoms; E78.5 Hyperlipidemia, unspecified; Z95.1 Presence of aortocoronary bypass graft
CPT/HCPCS: A9500; G0378; J1650; J2785

== ENCOUNTER 2017-11-22 01:34 | Emergency (ER) | payer OTHER, MEDICAID ==
--- NOTE | 2017-11-22 01:49 | EDPHY ---
H & P Time Seen by Provider: 11/22/17 01:42 HPI/ROS: Chief Complaint: Left chest pain HPI: 82-year-old male began having pain under his left arm 24 hr ago. Is been persistent since that time, about a 5/10. It does hurt with movement. It is not exertional. He has had similar episodes in the past. He does have a history of coronary disease and a CABG 11 years ago. He did have an episode of central chest pain several months ago and had a equivocal cardiac perfusion scan at that time. He also had similar pain under his left arm several months ago which was diagnosed as chest wall pain. He has not had any substernal chest pain. No shortness of breath. No fevers or chills. No cough. No nausea or vomiting. Is described as a dull aching. ROS: 10 point Review of Systems is negative except as noted in the HPI. PMH: Coronary artery disease Social History: No smoking, no alcohol, no recreational drug use Family History: non-contributory Physical Exam: Gen: Awake, Alert, No Distress HEENT: Nose: no rhinorrhea Eyes: PERRLA, EOMI Mouth: Moist mucosa Neck: Supple, no JVD Chest: Patient has tenderness along the 3rd and 4th ribs in the mid axillary line reproducing his presenting complaint, lungs clear to auscultation Heart: S1, S2 normal, no murmur Abd: Soft, non-tender, no guarding Back: no CVA tenderness, no midline tenderness Ext: no edema, non-tender Skin: no rash Neuro: CN II-XII intact, Sensation grossly intact, Strength 5/5 in bilateral upper and lower extremities - Medical/Surgical History Hx Asthma: No Hx Chronic Respiratory Disease: No Hx Diabetes: No Hx Cardiac Disease: Yes Hx Renal Disease: No Hx Cirrhosis: No Hx Alcoholism: No Hx HIV/AIDS: No Hx Splenectomy or Spleen Trauma: No Other PMH: [place], Cardiac Bypass (2006),x4 hyperlipidemia, Prostate issues, bilat cataract surg. CHF, constipation, right eye lid droop - Social History Smoking Status: Never smoked Constitutional: Initial Vital Signs Temperature (C) 36.7 C 11/22/17 01:56 Heart Rate 63 11/22/17 01:56 Respiratory Rate 20 11/22/17 01:56 Blood Pressure 126/59 H 11/22/17 01:56 O2 Sat (%) 95 11/22/17 01:56 O2 Delivery Mode Room Air Allergies/Adverse Reactions: No Known Allergies Allergy (Verified 11/22/17 01:56) Home Medications: Medication Instructions Recorded Aspirin [Aspirin 81mg (*)] 81 mg PO DAILY 01/10/16 C/E/Zn/Cu/OM3/DHA/EPA/LUT/ZEAX 2 each PO DAILY 05/22/16 [Preservision Areds 2 Softgel] Multivitamins [Multivitamin (*)] 1 each PO DAILY 05/22/16 [place]-3 Fatty Acids [Fish Oil 1000 1,000 mg PO DAILY 05/22/16 mg (*)] Finasteride [Proscar 5 MG (*)] 5 mg PO DAILY 06/19/17 Sodium Cl Nasal [[place] (*)] 1 spray NS DAILY PRN 06/19/17 Vanicream [Vanicream (*)] 1 essie TP DAILY PRN 06/19/17 Atorvastatin Calcium [Lipitor 40 20 mg PO DAILY 08/04/17 mg (*)] Metoprolol Succinate Xr [Toprol Xl 12.5 mg PO DAILY #30 tab 08/05/17 25 mg (*)] Medical Decision Making - Diagnostics EKG Interpretation: ECG time 1:52 a.m., sinus rhythm with a rate of 61, first-degree AV block, nonspecific intraventricular conduction delay, 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 ECG is completely unchanged from 1 from the July. Imaging Results: Chest x-ray is nonacute and unchanged from prior per my interpretation. Imaging: I viewed and interpreted images myself ED Course/Re-evaluation: 82-year-old male with a history of coronary disease presenting with left axillary pain which is reproducible. Patient has had multiple visits for similar presentations in the past. He was here several months ago and had a an unremarkable nuclear test at that time in Cardiology let to not do a catheterization. Patient has reproducible chest pain. No nonacute ECG. Normal troponin. His pain is been present for over 24 hr. I do not believe this represents acute coronary syndrome. I have discussed with the patient. He is in agreement. Plan will be to discharge for follow-up as an outpatient, return for any concerns. There is no evidence of any acute coronary syndrome at this time. - Data Points Laboratory Results: Laboratory Results 11/22/17 01:34 11/22/17 01:34 11/22/17 11/22/17 11/22/17 01:50 01:34 01:34 WBC 6.24 10^3/uL 10^3/uL (3.80-9.50) RBC 4.75 10^6/uL 10^6/uL (4.40-6.38) Hgb 15.2 g/dL g/dL (13.7-17.5) Hct 44.7 % % (40.0-51.0) MCV 94.1 fL fL (81.5-99.8) MCH 32.0 pg pg (27.9-34.1) MCHC 34.0 g/dL g/dL (32.4-36.7) RDW 13.0 % % (11.5-15.2) Plt Count 143 10^3/uL L 10^3/uL (150-400) MPV 9.6 fL fL (8.7-11.7) Neut % (Auto) 47.5 % % (39.3-74.2) Lymph % (Auto) 38.3 % % (15.0-45.0) [place] % (Auto) 9.0 % % (4.5-13.0) Eos % (Auto) 4.3 % % (0.6-7.6) Baso % (Auto) 0.3 % % (0.3-1.7) Nucleat RBC Rel Count 0.0 % % (0.0-0.2) Absolute Neuts (auto) 2.96 10^3/uL 10^3/uL (1.70-6.50) Absolute Lymphs (auto) 2.39 10^3/uL 10^3/uL (1.00-3.00) Absolute Monos (auto) 0.56 10^3/uL 10^3/uL (0.30-0.80) Absolute Eos (auto) 0.27 10^3/uL 10^3/uL (0.03-0.40) Absolute Basos (auto) 0.02 10^3/uL 10^3/uL (0.02-0.10) Absolute Nucleated RBC 0.00 10^3/uL 10^3/uL (0-0.01) Immature Gran % 0.6 % % (0.0-1.1) Immature Gran # 0.04 10^3/uL 10^3/uL (0.00-0.10) Sodium 133 mEq/L L mEq/L (135-145) Potassium 4.6 mEq/L mEq/L (3.3-5.0) Chloride 100 mEq/L mEq/L (97-110) Carbon Dioxide 25 mEq/l mEq/l (22-31) Anion Gap 8 mEq/L mEq/L (8-16) BUN 20 mg/dL mg/dL (7-23) Creatinine 0.9 mg/dL mg/dL (0.7-1.3) Estimated GFR > 60 Glucose 99 mg/dL mg/dL (70-100) Calcium 9.5 mg/dL mg/dL (8.5-10.4) POC Troponin I 0.07 ng/mL ng/mL (0.00-0.08) Point of Care Test Results: Chemistry 11/22/17 01:50 POC Troponin I 0.07 ng/mL ng/mL (0.00-0.08) Departure - Departure Disposition: Home, Routine, Self-Care Clinical Impression: Chest wall pain Condition: Good Instructions: Chest Wall Pain (ED) Additional Instructions: Follow up with staff anesthetist in 2-3 days for further evaluation. Return to the emergency depart for increasing chest pain, shortness of breath, fevers, chills, cough, or any other concerns. Referrals: Patient,NotPresent [Unknown] - As per Instructions
[2017-11-22 01:57] LABS: PLATELET COUNT 143 10^3/uL (150-400)
[2017-11-22 04:06] VITALS: BP 128/71
--- NOTE | 2017-11-23 18:58 | CPEKG ---
Heart Rate: 61 RR Interval: 984 P-R Interval: 236 QRSD Interval: 116 QT Interval: 452 QTC Interval: 456 P Dulce: 56 QRS Dulce: -34 T Wave Dulce: 33 EKG Severity - ABNORMAL ECG - EKG Impression: SINUS RHYTHM EKG Impression: FIRST DEGREE AV BLOCK EKG Impression: NONSPECIFIC INTRAVENTRICULAR CONDUCTION DELAY EKG Impression: CONSIDER ANTERIOR INFARCT Electronically Signed By: Cory Flores 24-Nov-2017 08:45:33
== END 2017-11-22 04:06 | disposition home or self-care (01) ==
LOC: EDUNIT#
DX: R07.89 Other chest pain (principal); I25.10 Atherosclerotic heart disease of native coronary artery without angina pectoris; I25.2 Old myocardial infarction; I50.9 Heart failure, unspecified; Z79.82 Long term (current) use of aspirin
CPT/HCPCS: 84484-PO

== ENCOUNTER 2018-01-29 00:58 | Emergency (ER) | payer OTHER ==
[2018-01-29 01:31] LABS: PLATELET COUNT 140 10^3/uL (150-400)
--- NOTE | 2018-01-29 03:21 | EDPHY ---
H & P Stated Complaint: Dizzy Time Seen by Provider: 01/29/18 01:08 HPI/ROS: Chief Complaint: Fatigue,"dizziness" HPI: 82-year-old male presenting with 2 days of worsening fatigue and what he is calling"dizziness". He says he is actually feeling a little bit unsteady on his feet when he is standing up. He is also noticing that he is getting a little more fatigued after he walks a block or 2. No chest pain. No shortness of breath. No true lightheadedness. No vertiginous symptoms. No nausea or vomiting. No fevers or chills. No other recent illness. No urinary urgency or frequency. No cough. He does not feel like he is going to fall. ROS: 10 systems were reviewed and were negative except those elements noted in the HPI. PMH: Coronary artery disease status post CABG quite a few years ago Social History: No smoking, no alcohol, no recreational drug use Family History: non-contributory Physical Exam: Gen: Awake, Alert, No Distress HEENT: Nose: no rhinorrhea Eyes: PERRLA, EOMI, chronic mild right ptosis Mouth: Moist mucosa Neck: Supple, no JVD Chest: nontender, lungs clear to auscultation Heart: S1, S2 normal, no murmur Abd: Soft, non-tender, no guarding Back: no CVA tenderness, no midline tenderness Ext: no edema, non-tender Skin: no rash Neuro: CN II-XII intact, Sensation grossly intact, Strength 5/5 in bilateral upper and lower extremities - Medical/Surgical History Hx Asthma: No Hx Chronic Respiratory Disease: No Hx Diabetes: No Hx Cardiac Disease: Yes Hx Renal Disease: No Hx Cirrhosis: No Hx Alcoholism: No Hx HIV/AIDS: No Hx Splenectomy or Spleen Trauma: No Other PMH: [place], Cardiac Bypass (2006),x4 hyperlipidemia, Prostate issues, bilat cataract surg. CHF, constipation, right eye lid droop - Social History Smoking Status: Never smoked Constitutional: Initial Vital Signs Temperature (C) 36.6 C 01/29/18 01:27 Heart Rate 76 01/29/18 01:27 Respiratory Rate 20 01/29/18 01:27 Blood Pressure 136/65 H 01/29/18 01:27 O2 Sat (%) 93 01/29/18 01:27 O2 Delivery Mode Room Air Allergies/Adverse Reactions: No Known Allergies Allergy (Verified 01/29/18 01:27) Home Medications: Medication Instructions Recorded Aspirin [Aspirin 81mg (*)] 81 mg PO DAILY 01/10/16 C/E/Zn/Cu/OM3/DHA/EPA/LUT/ZEAX 2 each PO DAILY 05/22/16 [Preservision Areds 2 Softgel] Multivitamins [Multivitamin (*)] 1 each PO DAILY 05/22/16 [place]-3 Fatty Acids [Fish Oil 1000 1,000 mg PO DAILY 05/22/16 mg (*)] Finasteride [Proscar 5 MG (*)] 5 mg PO DAILY 06/19/17 Sodium Cl Nasal [[facility] (*)] 1 spray NS DAILY PRN 06/19/17 Vanicream [Vanicream (*)] 1 essie TP DAILY PRN 06/19/17 Atorvastatin Calcium [Lipitor 40 20 mg PO DAILY 08/04/17 mg (*)] Metoprolol Succinate Xr [Toprol Xl 12.5 mg PO DAILY #30 tab 08/05/17 25 mg (*)] Medical Decision Making - Diagnostics EKG Interpretation: ECG time 1:09 a.m., sinus rhythm with a rate of 72, borderline pure interval prolongation, no acute ST or T-wave changes. ED Course/Re-evaluation: 82-year-old presenting with vague symptoms of unsteadiness and malaise. He has a completely normal exam. No trauma. Normal ECG and troponin. He has ambulated here without any difficulty. He has not have any dizziness or vertiginous symptoms. There is no signs of infection. No acute neurologic findings. No explanation for his acute symptoms but I do not see anything to suggest acute neurologic, cardiovascular or infectious process. He is ambulating and is well-hydrated. Will discharge to home with follow-up with primary care physician. - Data Points Laboratory Results: Laboratory Results 01/29/18 01:05 01/29/18 01:05 01/29/18 01/29/18 01/29/18 02:42 01:05 01:05 WBC 5.67 10^3/uL 10^3/uL (3.80-9.50) RBC 4.67 10^6/uL 10^6/uL (4.40-6.38) Hgb 15.2 g/dL g/dL (13.7-17.5) Hct 43.8 % % (40.0-51.0) MCV 93.8 fL fL (81.5-99.8) MCH 32.5 pg pg (27.9-34.1) MCHC 34.7 g/dL g/dL (32.4-36.7) RDW 13.2 % % (11.5-15.2) Plt Count 140 10^3/uL L 10^3/uL (150-400) MPV 9.7 fL fL (8.7-11.7) Neut % (Auto) 44.9 % % (39.3-74.2) Lymph % (Auto) 41.1 % % (15.0-45.0) [place] % (Auto) 7.8 % % (4.5-13.0) Eos % (Auto) 5.3 % % (0.6-7.6) Baso % (Auto) 0.5 % % (0.3-1.7) Nucleat RBC Rel Count 0.0 % % (0.0-0.2) Absolute Neuts (auto) 2.55 10^3/uL 10^3/uL (1.70-6.50) Absolute Lymphs (auto) 2.33 10^3/uL 10^3/uL (1.00-3.00) Absolute Monos (auto) 0.44 10^3/uL 10^3/uL (0.30-0.80) Absolute Eos (auto) 0.30 10^3/uL 10^3/uL (0.03-0.40) Absolute Basos (auto) 0.03 10^3/uL 10^3/uL (0.02-0.10) Absolute Nucleated RBC 0.00 10^3/uL 10^3/uL (0-0.01) Immature Gran % 0.4 % % (0.0-1.1) Immature Gran # 0.02 10^3/uL 10^3/uL (0.00-0.10) Sodium 139 mEq/L mEq/L (135-145) Potassium 4.6 mEq/L mEq/L (3.3-5.0) Chloride 104 mEq/L mEq/L (97-110) Carbon Dioxide 25 mEq/l mEq/l (22-31) Anion Gap 10 mEq/L mEq/L (8-16) BUN 20 mg/dL mg/dL (7-23) Creatinine 0.9 mg/dL mg/dL (0.7-1.3) Estimated GFR > 60 Glucose 119 mg/dL H mg/dL (70-100) Calcium 9.5 mg/dL mg/dL (8.5-10.4) Urine Color YELLOW Urine Appearance CLEAR Urine pH 5.0 (5.0-7.5) Ur Specific [place] 1.019 (1.002-1.030) Urine Protein NEGATIVE (NEGATIVE) Urine Ketones NEGATIVE (NEGATIVE) Urine Blood NEGATIVE (NEGATIVE) Urine Nitrate NEGATIVE (NEGATIVE) Urine Bilirubin NEGATIVE (NEGATIVE) Urine Urobilinogen NEGATIVE EU EU (0.2-1.0) Ur Leukocyte Esterase NEGATIVE (NEGATIVE) Urine Glucose NEGATIVE (NEGATIVE) Departure - Departure Disposition: Home, Routine, Self-Care Clinical Impression: Malaise and fatigue Condition: Good Instructions: Fatigue (ED) Additional Instructions: Follow up with primary care physician in 2-3 days for further evaluation. Return to the emergency department for increasing weakness, fevers or chills, falls, chest pain, shortness of breath, fainting, or any other concerns. Referrals: NONE *PRIMARY CARE P,. [Primary Care Provider] - As per Instructions
[2018-01-29 04:31] VITALS: BP 129/55
--- NOTE | 2018-01-29 07:06 | CPEKG ---
Test Reason : OPEN Blood Pressure : / mmHG Vent. Rate : 072 BPM Atrial Rate : 072 BPM P-R Int : 209 ms QRS Dur : 116 ms QT Int : 424 ms P-R-T Axes : 066 -39 019 degrees QTc Int : 465 ms Sinus rhythm Nonspecific IVCD with LAD Confirmed by Neri Shen ([id number]) on 01/29/2018 7:05:25 AM Referred By: Confirmed By:Neri Shen
== END 2018-01-29 04:15 | disposition home or self-care (01) ==
LOC: EDUNIT#
DX: R53.83 Other fatigue (principal); R42 Dizziness and giddiness; I25.10 Atherosclerotic heart disease of native coronary artery without angina pectoris; I25.2 Old myocardial infarction; E78.5 Hyperlipidemia, unspecified; I50.9 Heart failure, unspecified; Z95.1 Presence of aortocoronary bypass graft
CPT/HCPCS: 84484-PO

== ENCOUNTER 2018-04-19 06:32 | Emergency (ER) | payer OTHER ==
--- NOTE | 2018-04-19 06:39 | EDPHY ---
H & P Stated Complaint: fall, L shoulder pain Source: Patient, EMS, Old records Exam Limitations: No limitations - Medical/Surgical History Hx Asthma: No Hx Chronic Respiratory Disease: No Hx Diabetes: No Hx Cardiac Disease: Yes Hx Renal Disease: No Hx Cirrhosis: No Hx Alcoholism: No Hx HIV/AIDS: No Hx Splenectomy or Spleen Trauma: No Other PMH: [place], Cardiac Bypass (2006),x4 hyperlipidemia, Prostate issues, bilat cataract surg. CHF, constipation, right eye lid droop - Social History Smoking Status: Never smoked <Bibi Lares - Last Filed: 04/19/18 06:50> <Ulisses Puente - Last Filed: 04/19/18 08:24> Time Seen by Provider: 04/19/18 06:36 HPI/ROS: HPI The patient presents with a fall which occurred just prior to arrival, brought in by ambulance from his home where he resides independently by himself. The patient reports that he has had a mild sore throat, cough, rhinorrhea for the last 3 days. About 4 hr ago he got up and took a dose of NyQuil to help him to sleep. He then awoke to use the bathroom and when he got up felt slightly dizzy. He then fell, landing on his left shoulder and has had shoulder pain ever since which is achy, does not radiate, is worse when he moves his shoulder in any direction. He has no prior shoulder injuries. He does feel slightly dizzy upon standing. He denies any chest pain, shortness of breath, palpitations. Of note, he was admitted to the hospital at the end of February for chest pain with a relatively unremarkable workup. He does have a history of CAD status post CABG, however studies indicated that he did not have any critical narrowing of his vessels.. REVIEW OF SYSTEMS 10 systems were reviewed and negative with the exception of the elements mentioned in the history of present illness. PMHx: CAD status post CABG Soc Hx: Housed independently, reports increased stress since his sister went on hospice care PHYSICAL General Appearance: Alert, no distress Eyes: Pupils equal and round no pallor or injection ENT, Mouth: Mucous membranes moist Respiratory: There are no retractions, lungs are clear to auscultation Cardiovascular: Regular rate and rhythm Gastrointestinal: Abdomen is soft and non-tender, no masses, bowel sounds normal Neurological: A&O, moves all extremities Skin: Warm and dry, no rashes Musculoskeletal: Neck is supple non tender, left shoulder is slightly tender to palpation with limited AB duction and extension secondary to pain Extremities: symmetrical, full range of motion Psychiatric: Patient is oriented X 3, there is no agitation (Bibi Lares) Constitutional: Initial Vital Signs Temperature (C) 36.7 C 04/19/18 06:37 Heart Rate 65 04/19/18 06:37 Respiratory Rate 18 04/19/18 06:37 Blood Pressure 123/63 H 04/19/18 06:37 O2 Sat (%) 92 04/19/18 06:37 O2 Delivery Mode Room Air Allergies/Adverse Reactions: No Known Allergies Allergy (Verified 04/19/18 06:43) Home Medications: Medication Instructions Recorded C/E/Zn/Cu/OM3/DHA/EPA/LUT/ZEAX 2 each PO DAILY 05/22/16 [Preservision Areds 2 Softgel] Multivitamins [Multivitamin (*)] 1 each PO DAILY 05/22/16 Finasteride [Proscar 5 MG (*)] 5 mg PO DAILY 06/19/17 Vanicream [Vanicream (*)] 1 essie TP DAILY PRN 06/19/17 Atorvastatin Calcium [Lipitor 40 20 mg PO DAILY 08/04/17 mg (*)] Metoprolol Succinate Xr [Toprol Xl 12.5 mg PO DAILY #30 tab 08/05/17 25 mg (*)] Aspirin [Aspirin 325 mg (*)] 325 mg PO DAILY 03/23/18 Medical Decision Making <Bibi Lares - Last Filed: 04/19/18 06:50> - Diagnostics Imaging: I viewed and interpreted images myself <Ulisses Puente - Last Filed: 04/19/18 08:24> - Diagnostics Imaging Results: Imaging Impressions Shoulder X-Ray 04/19/18 06:40 Impression: 1. No acute osseous abnormality seen left shoulder. 2. Old healed left rib fractures. Chest X-Ray 04/19/18 06:41 Impression: 1. No active cardiopulmonary disease seen. 2. Old healed right and left rib fractures.. Chest x-ray and left shoulder x-ray shows sternal wires but otherwise negative for acute traumatic injury, or pneumonia. (Ulisses Puente) Differential Diagnosis: This is an 82-year-old man who lives independently with history of CAD who presents from home after a fall after getting out of bed tonight. He did take a dose of NyQuil before this. He landed on his left shoulder and that is his main complaint. He does have mild dizziness upon standing according to the paramedics. Here, vital signs are normal, he does have shoulder tenderness. Remainder of exam is unremarkable. Plan for small fluid bolus, EKG, basic labs, shoulder x-rays. Differential diagnosis includes humeral head fracture, rotator cuff injury, less likely shoulder dislocation. At approximately 6:51 a.m., the case is signed out to the oncoming provider Dr. Puente pending the patient's studies and reassessment. (Bibi Lares) Other Provider: Care assumed at 7:00 a.m.. Initial history physical and orders by Dr. Lares. Patient examined personally at 7:15 a.m. And history is confirmed as he took NyQuil for a nonproductive cough he has had for 3 days. He has not taken that medication in over 10 years any felt a little bit dizzy and lightheaded this morning which is why he fell. He did not have chest pain or shortness of breath , no vertigo, did not have syncope or loss of consciousness. Denies dysuria or urinary frequency, hematuria, or any other urinary symptoms. No fever or chills. No lower abdominal pain. Currently denies head or neck pain or abdominal pain. His shoulder does not hurt on palpation only when he tries to abduct it. He would like to be discharged if possible to visit his sister who is in hospice. On examination the patient does not have clavicular or AC or humeral tenderness. Normal neurovascular in the left hand. He is not tender over the spleen. His tongue is slightly dry and he is thirsty. At this time he is up ambulatory to the bathroom without ataxia or assistance. He appears to have stable gait. 723: Labs reviewed including normal WBC and hematocrit, sodium slightly low at 134 but not critical, remainder of electrolytes unremarkable. Urinalysis not ordered, without evidence clinically of infection or any urinary symptoms. Oral acetaminophen, oral fluid hydration, discharge if the patient is able to ambulate. This is what he wants which I think is reasonable. (Ulisses Puente) - Data Points Laboratory Results: Laboratory Results 04/19/18 06:45 04/19/18 06:45 04/19/18 04/19/18 06:45 06:45 WBC 6.81 10^3/uL 10^3/uL (3.80-9.50) RBC 4.58 10^6/uL 10^6/uL (4.40-6.38) Hgb 14.7 g/dL g/dL (13.7-17.5) Hct 43.1 % % (40.0-51.0) MCV 94.1 fL fL (81.5-99.8) MCH 32.1 pg pg (27.9-34.1) MCHC 34.1 g/dL g/dL (32.4-36.7) RDW 12.9 % % (11.5-15.2) Plt Count 142 10^3/uL L 10^3/uL (150-400) MPV 9.6 fL fL (8.7-11.7) Neut % (Auto) 48.9 % % (39.3-74.2) Lymph % (Auto) 36.3 % % (15.0-45.0) [place] % (Auto) 8.8 % % (4.5-13.0) Eos % (Auto) 5.0 % % (0.6-7.6) Baso % (Auto) 0.6 % % (0.3-1.7) Nucleat RBC Rel Count 0.0 % % (0.0-0.2) Absolute Neuts (auto) 3.33 10^3/uL 10^3/uL (1.70-6.50) Absolute Lymphs (auto) 2.47 10^3/uL 10^3/uL (1.00-3.00) Absolute Monos (auto) 0.60 10^3/uL 10^3/uL (0.30-0.80) Absolute Eos (auto) 0.34 10^3/uL 10^3/uL (0.03-0.40) Absolute Basos (auto) 0.04 10^3/uL 10^3/uL (0.02-0.10) Absolute Nucleated RBC 0.00 10^3/uL 10^3/uL (0-0.01) Immature Gran % 0.4 % % (0.0-1.1) Immature Gran # 0.03 10^3/uL 10^3/uL (0.00-0.10) Sodium 134 mEq/L L mEq/L (135-145) Potassium 4.4 mEq/L mEq/L (3.5-5.2) Chloride 103 mEq/L mEq/L (97-110) Carbon Dioxide 23 mEq/l mEq/l (22-31) Anion Gap 8 mEq/L mEq/L (6-14) BUN 19 mg/dL mg/dL (7-23) Creatinine 0.8 mg/dL mg/dL (0.7-1.3) Estimated GFR > 60 Glucose 102 mg/dL H mg/dL (70-100) Calcium 9.0 mg/dL mg/dL (8.5-10.4) Medications Given: Discontinued Medications Acetaminophen (Tylenol) 650 mg PO EDNOW ONE Stop: 04/19/18 07:16 Last Admin: 04/19/18 07:28 Dose: 650 mg Sodium Chloride (Ns) 1,000 mls @ 0 mls/hr IV EDNOW ONE; Wide Open PRN Reason: Protocol Stop: 04/19/18 07:19 Last Admin: 04/19/18 07:28 Dose: 1,000 mls Departure <Bibi Lares - Last Filed: 04/19/18 06:50> <Ulisses Puente - Last Filed: 04/19/18 08:24> - Departure Disposition: Home, Routine, Self-Care Clinical Impression: Contusion of left shoulder, initial encounter Condition: Good Instructions: Rotator Cuff Injury (ED) Referrals: Patient,NotPresent [Primary Care Provider] - 3-4 days, if not improved (your PCP at [facility]) Amanda Olivas MD [Medical Doctor] - As per Instructions (Local [facility] orthopedist referral for your shoulder.)
--- NOTE | 2018-04-19 06:47 | CPEKG ---
Test Reason : OPEN Blood Pressure : / mmHG Vent. Rate : 063 BPM Atrial Rate : 063 BPM P-R Int : 208 ms QRS Dur : 120 ms QT Int : 455 ms P-R-T Axes : 001 -34 040 degrees QTc Int : 466 ms Sinus rhythm Nonspecific intraventricular conduction delay Consider anterior infarct Confirmed by Ulisses Puente ([id number]) on 04/19/2018 6:46:40 AM Referred By: Confirmed By:Ulisses Puente
[2018-04-19 06:56] LABS: PLATELET COUNT 142 10^3/uL (150-400)
[2018-04-19] MEDS ORDERED: ACETAMINOPHEN 325 MG TAB PO ONE (07:15)
[2018-04-19] MEDS ORDERED: NS 1,000 ML IV ONE (07:18)
[2018-04-19] MEDS ORDERED: ACETAMINOPHEN 325 MG TAB ONE (07:29)
[2018-04-19 08:46] VITALS: BP 117/60
== END 2018-04-19 09:00 | disposition home or self-care (01) ==
LOC: EDUNIT#
DX: S40.012A Contusion of left shoulder, initial encounter (principal); E86.9 Volume depletion, unspecified; E78.5 Hyperlipidemia, unspecified; I50.9 Heart failure, unspecified; I25.10 Atherosclerotic heart disease of native coronary artery without angina pectoris; I25.2 Old myocardial infarction; W06.XXXA Fall from bed, initial encounter; Y92.003 Bedroom of unspecified non-institutional (private) residence as the place of occurrence of the external cause; Y93.9 Activity, unspecified; Y99.9 Unspecified external cause status; Z95.1 Presence of aortocoronary bypass graft

== ENCOUNTER 2018-06-15 14:29 | Emergency (ER) | payer OTHER, MEDICAID ==
--- NOTE | 2018-06-15 14:37 | EDPHY ---
H & P Time Seen by Provider: 06/15/18 14:36 HPI/ROS: CHIEF COMPLAINT: "Incredibly weak, it takes me a long time to do anything." HISTORY OF PRESENT ILLNESS: The patient is an 83 y/o male with a history of CAD, CABG x4, hypertension complaining of worsening weakness since last night. He has felt feverish, but has not measured a fever at home. He decided to come to the ED for evaluation and by the time he was at the bus stop he felt much less ill, though still weak globally. He reports he has fallen 6 times in the last 2 months. He says he was told to stop taking his metoprolol thinking that it might may be contributing to his falls. He has had rhinorrhea recently. He denies coughing, sore throat, myalgias, bloody or black stools, vomiting, abdominal pain. He recently got over a shingles infection. He has not gotten a flu vaccination "for over 40 years." He mentions his sister last month and he has been stressed since this event. [facility] REVIEW OF SYSTEMS: A ten system review of systems was performed and is negative with the exception of the items mentioned in the HPI. Constipation at baseline. Past medical history: 1. CAD, [place] 2. Hypercholesterolemia - atorvastatin 3. Hypertension - metoprolol 4. CHF 5. Prostate issues 6. Right eye ptosis Past surgical history: 1. CABG x4 2. Cataract surgery Family history: Noncontributory Social history: Uses a walker. Has rn social work that assists him. Lives independently. Sister recently - April 2018. PCP: Dr. Puckett, [facility]. Screen Writer: Dr. Kim Prior medical records reviewed including admission 03/23/18 for chest pain. General Appearance: Alert. Vital signs reviewed. Eyes: Pupils equal and round, no conjunctival injection, no discharge. Ptosis of right eye. Anicteric. ENT, Mouth: Mucous membranes are moist, no oropharyngeal erythema or edema. Neck: No lymphadenopathy, supple. Respiratory: Lungs are clear to auscultation; no wheezes, rales, or rhonchi. Cardiovascular: Regular rate and rhythm; no murmur, rub, or gallop. Gastrointestinal: Abdomen is soft and nontender, no masses or organomegaly. Skin: Warm and dry, normal color. Back: Scabbed erythematous, vesicular lesions across upper thorax on right, dermatomal distribution,consistent with healing shingles. Nontender to palpation over the thoracolumbar spine. No CVAT. Extremities: Chronic venous stasis changes bilaterally. 1+ lower extremity edema bilaterally, no calf tenderness or swelling. Neurological: Alert and oriented. Moving all four extremities easily and equally. Tremor of both hands. Cranial nerves II through XII are examined and are intact--he has longstanding ptosis of right eye (visual acuity not tested). Strength is 5- over 5 bilaterally with testing of all major motor groups. Sensation is intact to light touch over all 4 extremities. Psychiatric: Normal affect. - Personal History Tetanus Vaccine Date: 02/2016 - Medical/Surgical History Hx Asthma: No Hx Chronic Respiratory Disease: No Hx Diabetes: No Hx Cardiac Disease: Yes Hx Renal Disease: No Hx Cirrhosis: No Hx Alcoholism: No Hx HIV/AIDS: No Hx Splenectomy or Spleen Trauma: No Other PMH: [place], Cardiac Bypass (2006),x4 hyperlipidemia, Prostate issues, bilat cataract surg. CHF, constipation, right eye lid droop - Social History Smoking Status: Never smoked Constitutional: Initial Vital Signs Temperature (C) 36.4 C 06/15/18 14:39 Heart Rate 82 06/15/18 14:39 Respiratory Rate 16 06/15/18 14:39 Blood Pressure 152/74 H 06/15/18 14:39 O2 Sat (%) 95 06/15/18 14:39 O2 Delivery Mode Room Air Allergies/Adverse Reactions: No Known Allergies Allergy (Verified 06/15/18 14:39) Home Medications: Medication Instructions Recorded C/E/Zn/Cu/OM3/DHA/EPA/LUT/ZEAX 2 each PO DAILY 05/22/16 [Preservision Areds 2 Softgel] Multivitamins [Multivitamin (*)] 1 each PO DAILY 05/22/16 Finasteride [Proscar 5 MG (*)] 5 mg PO DAILY 06/19/17 Vanicream [Vanicream (*)] 1 essie TP DAILY PRN 06/19/17 Atorvastatin Calcium [Lipitor 40 20 mg PO DAILY 08/04/17 mg (*)] Metoprolol Succinate Xr [Toprol Xl 12.5 mg PO DAILY #30 tab 08/05/17 25 mg (*)] Aspirin [Aspirin 325 mg (*)] 325 mg PO DAILY 03/23/18 Medical Decision Making ED Course/Re-evaluation: While taking a history, patient stated that he was feeling normal again, except for runny nose. He states that he does not think he needs medical attention at this time. He ambulated in the halls, using the walker that he uses all the time, and had no problems. He would like to return home and will follow up thru [facility] system. I am comfortable discharging him. I have not found an emergency condition that would require further evaluation in the ED. It is my impression that he wanted someone to talk with about his sister's . I do not think that he is suicidal. Differential Diagnosis: I considered a differential diagnosis that includes but is not limited to dehydration, stroke, failure to thrive in an elderly patient, depression, and infectious process. Departure - Departure Disposition: Home, Routine, Self-Care Clinical Impression: Weakness Condition: Fair Instructions: Weakness (ED) Additional Instructions: Follow up with your [facility] primary care provider as planned. Return to the ED for worsening of condition. Referrals: [facility] [Other] - As per Instructions Report Scribed for: Fariba Aponte Report Scribed by: Angela Chung Date of Report: 06/15/18 Time of Report: 14:38 Physician Review and Approval Statement: 06/15/18 14:37 Portions of this note were transcribed by the medical laboratory technicians. I, Dr. Fariba Aponte, personally performed the history, physical exam, and medical decision- making; and confirmed the accuracy of the information in the transcribed note.
[2018-06-15 15:52] VITALS: BP 141/75
== END 2018-06-15 15:50 | disposition home or self-care (01) ==
DX: R53.1 Weakness (principal)

== ENCOUNTER 2018-07-04 21:40 | Inpatient (IN) | payer OTHER, MEDICAID ==
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
[2018-07-04 22:52] LABS: PLATELET COUNT 146 10^3/uL (150-400)
[2018-07-04 23:02] LABS: INR 1.09 (0.83-1.16); PROTIME(PATIENT) 13.7 SEC (12.0-15.0)
[2018-07-05] MEDS ORDERED: ONDANSETRON 4 MG/2 ML VIAL IVP PRN (00:23)
[2018-07-05] MEDS ORDERED: ACETAMINOPHEN 325 MG TAB PO PRN (00:23)
[2018-07-05] MEDS ORDERED: ONDANSETRON DISINTEGRATING 4 MG TAB PO PRN (00:23)
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
[2018-07-05] MEDS ORDERED: oxyCODONE IR 5 MG TAB PO PRN (04:32)
[2018-07-05] MEDS ORDERED: IBUPROFEN 200 MG TAB PO PRN (04:32)
[2018-07-05 05:19] LABS: PLATELET COUNT 141 10^3/uL (150-400)
[2018-07-05] MEDS: ACETAMINOPHEN 500 MG TAB PO SCH ×2 (09:31→15:52)
--- NOTE | 2018-07-05 09:59 | ASMTCMCOM ---
CM Note CM Note Notes: Chart reviewed for discharge planning purposes. Patient s/p fall and is unable to walk and perform ADL's no therapy ordered yet. CM to follow for needs. Plan: TBD Date Signed: 07/05/2018 09:58 AM Electronically Signed By:Lidya Villela RN
--- NOTE | 2018-07-05 11:29 | HOSPPROG ---
Hospitalist Progress Note Assessment/Plan: 83 yo M w/ hx of CAD presents after a fall now unable to ambulate. Mechanical fall - CT of the pelvis (personally reviewed/interpreted) was negative for acute fracture. - pain control - PT/OT evaluations, likely warrants SNF, unable to do ADL's Hx CAD - S/p CABG - stable - Continue home medications BPH - Proscar Diet - Regular Code - Full Ppx - SCDs Dispo - obs Subjective: Pt feels better. He is having difficulty ambulating, but was able to get up with PT and walker today. No CP, SOB. Taking po fairly well. Objective: Vital Signs Temp Pulse Resp BP Pulse Ox 36.5 C 67 16 120/67 94 07/05/18 07:38 07/05/18 07:38 07/05/18 07:38 07/05/18 07:38 07/05/18 07:38 Laboratory Results 07/05/18 04:32 07/05/18 04:32 07/04/18 07/05/18 07/06/18 04:59 05:59 05:59 Intake Total Output Total 600 Balance -600 PT 13.7 SEC (12.0-15.0) 07/04/18 22:43 INR 1.09 (0.83-1.16) 07/04/18 22:43 - Physical Exam Constitutional: no apparent distress Eyes: PERRL Ears, Nose, Mouth, Throat: moist mucous membranes Cardiovascular: regular rate and rhythym Respiratory: no respiratory distress Gastrointestinal: normoactive bowel sounds, soft, non-tender abdomen Skin: warm Musculoskeletal: full muscle strength Neurologic: AAOx3 Psychiatric: interacting appropriately ICD10 Worksheet Patient Problems: Problems Problem Status Onset Hip pain, left Acute Chest pain Acute Chest pain, rule out acute myocardial infarction Acute Epistaxis Acute Fall Acute Fatigue Acute Laceration of nose Acute Nasal bone fracture Acute Pneumonia Acute Shortness of breath Acute
[2018-07-05] MEDS ORDERED: BISACODYL 10 MG SUPP PR PRN (11:31)
[2018-07-05] MEDS ORDERED: POLYETHYLENE GLYCOL 3350 17 GM PKT PO PRN (11:31)
[2018-07-05] MEDS ORDERED: LACTULOSE 20 GM/30 ML UDCUP PO PRN (11:31)
[2018-07-05] MEDS ORDERED: MAGNESIUM HYDROXIDE 30 ML UDCUP PO PRN (11:31)
[2018-07-05] MEDS: ASPIRIN 325 MG TAB PO SCH (11:46)
[2018-07-05] MEDS: FINASTERIDE 5 MG TAB PO SCH (11:46)
--- NOTE | 2018-07-05 17:03 | PDMN ---
Medical Necessity Medical necessity: [facility] Musculoskeletal Disease: 83 yo s/p mechanical fall, injured leg but no acute fx, unable to complete ADLs, lives alone. Admit to OBS initially but pt requires additional MN for PT/OT eval and tx. Pt still having difficulty ambulating. Does not meet d/c criteria. Hx CAD/CABG. Change to IP status 07/05/18@1409 per order.
[2018-07-05] MEDS: SENNOSIDES/DOCUSATE SODIUM TAB PO SCH (20:30)
[2018-07-06] MEDS: ACETAMINOPHEN 500 MG TAB PO SCH ×3 (01:47→17:42)
[2018-07-06] MEDS: SENNOSIDES/DOCUSATE SODIUM TAB PO SCH ×2 (08:45→22:32)
[2018-07-06] MEDS: FINASTERIDE 5 MG TAB PO SCH (08:46)
[2018-07-06] MEDS: ASPIRIN 325 MG TAB PO SCH (08:46)
--- NOTE | 2018-07-06 15:37 | ASMTCMCOM ---
CM Note CM Note Notes: PT rec SNF, pt wants referral to [facility] which is sent in [facility]. D/c plan: SNF Date Signed: 07/06/2018 03:37 PM Electronically Signed By:NIRAV Sanchez
--- NOTE | 2018-07-06 16:13 | HOSPPROG ---
Hospitalist Progress Note Assessment/Plan: 83 yo M w/ hx of CAD presents after a fall now unable to ambulate. Mechanical fall - CT pelvis negative for acute fracture. - pain control - PT/OT evaluations, likely warrants SNF, unable to do ADL's Hx CAD - S/p CABG - stable - Continue home medications BPH - Proscar Diet - Regular Code - Full Ppx - SCDs Dispo - cont inpt, will d/c to SNF on Friday Subjective: Pt doing ok, still weak, not getting around well. Objective: Vital Signs Temp Pulse Resp BP Pulse Ox 36.6 C 70 17 129/61 H 94 07/06/18 15:00 07/06/18 15:00 07/06/18 15:00 07/06/18 15:00 07/06/18 15:00 07/05/18 07/06/18 07/07/18 05:59 05:59 05:59 Intake Total 1300 Output Total 750 Balance 550 PT 13.7 SEC (12.0-15.0) 07/04/18 22:43 INR 1.09 (0.83-1.16) 07/04/18 22:43 - Physical Exam Constitutional: no apparent distress Eyes: PERRL Ears, Nose, Mouth, Throat: moist mucous membranes Cardiovascular: regular rate and rhythym Respiratory: no respiratory distress Gastrointestinal: normoactive bowel sounds, soft, non-tender abdomen Skin: warm Neurologic: AAOx3 Psychiatric: interacting appropriately ICD10 Worksheet Patient Problems: Problems Problem Status Onset Hip pain, left Acute Chest pain Acute Chest pain, rule out acute myocardial infarction Acute Epistaxis Acute Fall Acute Fatigue Acute Laceration of nose Acute Nasal bone fracture Acute Pneumonia Acute Shortness of breath Acute
[2018-07-07] MEDS: ACETAMINOPHEN 500 MG TAB PO SCH ×4 (03:43→23:17)
[2018-07-07] MEDS: FINASTERIDE 5 MG TAB PO SCH (09:03)
[2018-07-07] MEDS: ASPIRIN 325 MG TAB PO SCH (09:03)
[2018-07-07] MEDS: SENNOSIDES/DOCUSATE SODIUM TAB PO SCH ×2 (09:04→21:35)
--- NOTE | 2018-07-07 14:21 | ASMTCMCOM ---
CM Note CM Note Notes: Pt requested referral for SNF sent to [facility]. CM explained acceptance was unlikely, so sent referral to [facility] as well, just in case. Pt has been accepted at [facility] but is having second thoughts. Pt will likely discharge tomorrow. D/C Plan: SNF TBD Date Signed: 07/07/2018 02:18 PM Electronically Signed By:Deena Monsalve
--- NOTE | 2018-07-07 14:33 | HOSPPROG ---
Hospitalist Progress Note Assessment/Plan: 83 yo M w/ hx of CAD presents after a fall and inability to ambulate. Mechanical fall in setting of deconditioning - CT pelvis negative for acute fracture. Walking with walker now, needs rehab. - pain control - cont PT/OT - to SNF likely in am Hx CAD - S/p CABG - stable - Continue home medications BPH - Proscar Diet - Regular Code - Full Ppx - SCDs Dispo - cont inpt, will d/c to SNF on Friday Subjective: PT doing ok, able to ambulate with walker. He wants to do rehab to get stronger. No pain. No issues overnight. Objective: Vital Signs Temp Pulse Resp BP Pulse Ox 36.4 C 68 18 127/70 H 91 L 07/07/18 11:27 07/07/18 11:27 07/07/18 11:27 07/07/18 11:27 07/07/18 11:27 07/06/18 07/07/18 07/08/18 05:59 05:59 05:59 Intake Total 1300 1300 Output Total 750 1250 Balance 550 50 PT 13.7 SEC (12.0-15.0) 07/04/18 22:43 INR 1.09 (0.83-1.16) 07/04/18 22:43 - Physical Exam Constitutional: no apparent distress Eyes: PERRL Ears, Nose, Mouth, Throat: moist mucous membranes Cardiovascular: regular rate and rhythym Respiratory: no respiratory distress Gastrointestinal: normoactive bowel sounds, soft, non-tender abdomen Skin: warm Neurologic: AAOx3 Psychiatric: interacting appropriately ICD10 Worksheet Patient Problems: Problems Problem Status Onset Hip pain, left Acute Chest pain Acute Chest pain, rule out acute myocardial infarction Acute Epistaxis Acute Fall Acute Fatigue Acute Laceration of nose Acute Nasal bone fracture Acute Pneumonia Acute Shortness of breath Acute
--- NOTE | 2018-07-07 16:03 | ASMTCMCOM ---
CM Note CM Note Notes: ADDENDUM: Pt requested CM fax [facility]. Completed by CM today. Date Signed: 07/07/2018 04:02 PM Electronically Signed By:Deena Monsalve
[2018-07-08] MEDS: ACETAMINOPHEN 500 MG TAB PO SCH ×2 (07:49→19:52)
[2018-07-08] MEDS: FINASTERIDE 5 MG TAB PO SCH (07:50)
[2018-07-08] MEDS: SENNOSIDES/DOCUSATE SODIUM TAB PO SCH (07:51)
[2018-07-08] MEDS: ASPIRIN 325 MG TAB PO SCH (07:51)
--- NOTE | 2018-07-08 10:38 | ASMTCMCOM ---
CM Note CM Note Notes: Met with patient, wants to stick with [facility], MC notified. Pt states he needs a walker for dc, CM to check on available walkers. DC Plan: [facility] Date Signed: 07/08/2018 10:37 AM Electronically Signed By:Rajwinder Barros RN
--- NOTE | 2018-07-08 20:32 | HOSPPROG ---
Hospitalist Progress Note Assessment/Plan: 83 yo M w/ hx of CAD presents after a fall and inability to ambulate. Mechanical fall in setting of deconditioning - CT pelvis negative for acute fracture. Walking with walker now, needs rehab. - pain control - cont PT/OT - to SNF likely in am (was unable to transfer today bc of facility/weather) Hx CAD - S/p CABG - stable - Continue home medications BPH - Proscar Thrombocytopenia-will recheck prior to discharge for stability PCP- MD Diet - Regular Code - Full Ppx - SCDs Dispo - cont inpt, will d/c to SNF on Subjective: Denies CP/SOB/n/v. Frustrated bc unable to get ahold [facility] or his nephew. Objective: Vital Signs Temp Pulse Resp BP Pulse Ox 97.4 F 69 18 127/67 H 94 07/08/18 07:45 07/08/18 07:45 07/08/18 07:45 07/08/18 07:45 07/08/18 07:45 07/07/18 07/08/18 07/09/18 11:59 11:59 11:59 Intake Total 1300 800 350 Output Total 1250 950 Balance 50 -150 350 PT 13.7 SEC (12.0-15.0) 07/04/18 22:43 INR 1.09 (0.83-1.16) 07/04/18 22:43 - Pending Discharge Pending Discharge Within 24 Hours: Yes Pending Discharge Date: 07/09/18 Pending Discharge Time: 11:00 ICD10 Worksheet Patient Problems: Problems Problem Status Onset Hip pain, left Acute Chest pain Acute Chest pain, rule out acute myocardial infarction Acute Epistaxis Acute Fall Acute Fatigue Acute Laceration of nose Acute Nasal bone fracture Acute Pneumonia Acute Shortness of breath Acute
[2018-07-08 21:33] LABS: PLATELET COUNT 152 10^3/uL (150-400)
[2018-07-09] MEDS: ACETAMINOPHEN 500 MG TAB PO SCH ×2 (00:05→10:47)
[2018-07-09] MEDS: SENNOSIDES/DOCUSATE SODIUM TAB PO SCH ×2 (00:06→10:34)
[2018-07-09 07:49] VITALS: BP 129/69
[2018-07-09] MEDS ORDERED: MAGNESIUM HYDROXIDE 30 ML UDCUP PO SCH (09:00)
--- NOTE | 2018-07-09 10:14 | ASMTLACE ---
LACE Length of stay for Answers: 4-6 days current admission Acuity / Level of Answers: Yes Care: Did the patient have an inpatient admission? Comorbidities - select Answers: Coronary Artery Disease all that apply # of Emergency department Answers: 1-2 visits in the last 6 months Social determinants Answers: Lack of community resources and/or lack of social support (no pcp, lives alone, transportation, jose d) Score: 14 Date Signed: 07/09/2018 10:14 AM Electronically Signed By:Rajwinder Barros RN
--- NOTE | 2018-07-09 10:28 | PDIAF ---
- Diagnosis Code Status: Full Code - Medication Management Custodial Antibiotics: n/a Discharge Medications: electronically signed and located in the Home Medication List. PICC Care - Routine: N/A - Orders Isolation Type: None Oxygen: n/a Diet Recommendation: no restrictions on diet Diet Texture: Regular Texture Diet Weigh Patient: weekly Additional Instructions: per PT/OT recommendations No known PCP- will need to etablish a PCP at discharge from facility - Labs/Radiology BMP Date: 07/13/18 - Follow Up Care Current Providers and Referrals: NONE *PRIMARY CARE P,. [Primary Care Provider] - As per Instructions
[2018-07-09] MEDS: FINASTERIDE 5 MG TAB PO SCH (10:32)
[2018-07-09] MEDS: ASPIRIN 325 MG TAB PO SCH (10:32)
--- NOTE | 2018-07-09 10:55 | ASMTDCNOTE ---
Case Management Discharge Discharge Order Complete? Answers: Yes Patient to Obtain Answers: Other Notes: [facility] Transportation Arranged Answers: Other Notes: [facility] Transport will Pick (Date 07/09/2018 11:30 AM & Time) Faxed Final Orders Answers: Yes Agency/Facility Transfer Answers: Yes Report Printed & Faxed to Receiving Agency Discharge Comments Notes: D/w MD, final orders faxed. Notified Crystal at , she will have a walker for pt in his room when upon his arrival. RN to call report. Date Signed: 07/09/2018 10:54 AM Electronically Signed By:Rajwinder Barros RN
--- NOTE | 2018-07-09 11:29 | GDS ---
[f rep st] DISCHARGE SUMMARY SERVICE: [facility] hospitalist. CONSULTS: None. PROCEDURES: Hip x-ray at admission: No definitive fracture. Equivocal pubic ramus fracture on the left. Chest x-ray at admission: CHF without pulmonary edema, scarring on the left, bronchial thickening. Pelvis CT on the day of admission: No fracture. Degenerative changes in the 6th left sacroiliac allyn nt and pubic ramus. HISTORY AND PHYSICAL: Please see previously dictated note by Dr. Gilliland. ADMISSION DIAGNOSES: 1. Mechanical fall, unable to ambulate. 2. History of coronary artery disease status post coronary artery bypass graft. DISCHARGE DIAGNOSES: 1. Mechanical fall, unable to ambulate. 2. History of coronary artery disease status post coronary artery bypass graft. 3. BPH. 4. Thrombocytopenia. 5. Hyponatremia. HOSPITAL COURSE: The patient was admitted to the hospital after having a fall while walking while re turning home from the grocery store using his walker. He was unable to ambulate because of pain and therefore unable to continue living independently. X-rays and CT scans were done as above, no defini tive fracture. He has been evaluated by PT/OT, and recommendation was for ongoing SNF/therapy. Pain was well controlled with oral medications and he was put on a bowel protocol to prevent constipation . No issues during his hospitalization from his known coronary artery disease. Vital signs were stable throughout his stay and his oxygen remained in the low 90s on room air. He was afebrile throughout his stay. He had slight thrombocytopenia noted initially, but on the day of discharge, it was normal with plate let count of 152. Rest of his blood count has been normal without any elevation of white blood cell count or anemia. He has a slightly low sodium 134 and then at discharge 133. This should be followed at the facility as needed. The rest of his metabolic panel was normal. His creatinine 0.8. He presented as being a full code and this should be verified with him at admission. He has a nephew who is his [id number] and he is a PCP at [facility]. DISCHARGE MEDICATIONS: Please see interagency form. DISCHARGE INSTRUCTIONS: Ambulation PT/OT per re-evaluation recommendations. Follow up with the [facility] if able to discharge. /[id number]/MODL
--- NOTE | 2018-07-09 13:43 | ASDISCHSUM ---
Discharge Information Plan Status:SNF Medically Cleared to Leave: Discharge Date:07/09/2018 11:55 AM CM D/C Disposition: ADT D/C Disposition:Snf Facility Projected Discharge Date:07/08/2018 11:00 AM Transportation at D/C: Discharge Delay Reason: Follow-Up Date:07/08/2018 11:00 AM Discharge Slot: Final Diagnosis: Placement Information Referral Type:*[facility]/SNF Referral ID:[id number] Provider Name:[facility]rit[facility] Rolon [place] Address 1[address] Address 2: City:[place] Selection Factors: State:[place] Patient Contact Information Contact Name:SHIKHA Relationship:Nidia Address:[address] City:[place] Alternate Phone: State/Zip Code:[place] [address] Email: Financial Information Financial Class:Medicare Primary Plan Desc:MEDICARE INPATIENT Primary Plan Number:[id number] Secondary Plan Desc:MED[place] Secondary Plan Number:[id number] Assessment Information LACE LACE Length of stay for Answers: 4-6 days current admission Acuity / Level of Answers: Yes Care: Did the patient have an inpatient admission? Comorbidities - select Answers: Coronary Artery Disease all that apply # of Emergency department Answers: 1-2 visits in the last 6 months Social determinants Answers: Lack of community resources and/or lack of social support (no pcp, lives alone, transportation, jose d) Score: 14 Date Signed: 07/09/2018 10:14 AM Electronically Signed By:Rajwinder Barros RN [facility] CM Progress Note CM Note CM Note Notes: Chart reviewed for discharge planning purposes. Patient s/p fall and is unable to walk and perform ADL's no therapy ordered yet. CM to follow for needs. Plan: TBD Date Signed: 07/05/2018 09:58 AM Electronically Signed By:Lidya Villela RN [facility] CM Progress Note CM Note CM Note Notes: PT rec SNF, pt wants referral to [facility] which is sent in [employer]. D/c plan: SNF Date Signed: 07/06/2018 03:37 PM Electronically Signed By:NIRAV Sanchez [facility] CM Progress Note CM Note CM Note Notes: Pt requested referral for SNF sent to [facility]. CM explained acceptance was unlikely, so sent referral to [facility] as well, just in case. Pt has been accepted at [facility] but is having second thoughts. Pt will likely discharge tomorrow. D/C Plan: SNF TBD Date Signed: 07/07/2018 02:18 PM Electronically Signed By:Deena Monsalve [facility] CM Progress Note CM Note CM Note Notes: ADDENDUM: Pt requested fax prescription for a front wheeled walker to the [facility] so that they will provide it. Completed by CM today. Date Signed: 07/07/2018 04:02 PM Electronically Signed By:Deena Monsalve [facility] Progress Note CM Note CM Note Notes: Met with patient, wants to stick with [facility] notified. Pt states he needs a walker for dc, CM to check on available walkers. DC Plan: [facility] Date Signed: 07/08/2018 10:37 AM Electronically Signed By:Rajwinder Barros RN Case Management Discharge Plan Note Case Management Discharge Discharge Order Complete? Answers: Yes Patient to Obtain Answers: Other Notes: [facility] Medications Transportation Arranged Answers: Other Notes: [facility] will Pick (Date 07/09/2018 11:30 AM & Time) Faxed Final Orders Answers: Yes Agency/Facility Transfer Answers: Yes Report Printed & Faxed to Receiving Agency Discharge Comments Notes: D/alison CORTEZ, final orders faxed. Notified Crystal at , she will have a walker for pt in his room when upon his arrival. RN to call report. Date Signed: 07/09/2018 10:54 AM Electronically Signed By:Rajwinder Barros RN Intervention Information Intervention Type:*IM-Signed Date of Service:07/09/2018 11:23 AM Patient Type:Inpatient Staff Member:Maribel Casper Hours: Discipline: Severity: Comment:
== END 2018-07-09 11:55 | DRG 914 ==
LOC: EDUNIT# → F3N 07-05 01:51 → OBSVTOIN 07-05 14:09
PROVIDERS: ADMIT Student in an Organized Health Care Education/Training Program; ATTEND Family Medicine
DX: S79.912A Unspecified injury of left hip, initial encounter (principal); W01.0XXA Fall on same level from slipping, tripping and stumbling without subsequent striking against object, initial encounter; D69.6 Thrombocytopenia, unspecified; I25.10 Atherosclerotic heart disease of native coronary artery without angina pectoris; N40.0 Benign prostatic hyperplasia without lower urinary tract symptoms; Z95.1 Presence of aortocoronary bypass graft
CPT/HCPCS: 97116-GP; 97161-GP; 97165-GO; 97530-GO; 97530-GP; 97535-GO